=== PATIENT | male | born 1965 | race Caucasian/White ===

== ENCOUNTER 2018-01-10 21:50 | Inpatient (IN) | payer OTHER, SELFPAY ==
[2018-01-10 21:51] VITALS: PULSE 60; RESP 16; TEMP 36.3; BMI 23.7
--- NOTE | 2018-01-10 21:56 | ED.RN ---
NO OLD EKG'S IN MUSE
[2018-01-10] MEDS: Aspirin 81 MG TAB.CHEW 324 MG PO (21:57)
[2018-01-10] MEDS: TICAGRELOR 90 MG TABLET 180 MG PO (21:58)
[2018-01-10 22:03] VITALS: BP 128/86
[2018-01-10] MEDS: Heparin Injection (Vial) 5,000 UNIT/ML VIAL 4000 UNIT IV (22:04)
[2018-01-10 22:12] VITALS: BP 117/76
[2018-01-10] MEDS: fentaNYL 100 MCG/2 ML Ampul 25 MCG IV (22:15)
[2018-01-10 22:19] LABS: Absolute Lymphocyte Count 2.12 X10^3/ul (0.83-4.51); Absolute Neutrophil Count 7.5 X10^3/uL (2.0-7.7); Basophil# 0.03 X10^3/uL; Basophil% 0.3 % (0-1); Eosinophil# 0.09 X10^3/uL; Eosinophils% 0.8 % (0-5); Hematocrit 44.8 % (40-54); Hemoglobin 15.9 g/dl (13.0-16.5); Lymphocyte # 2.12 X10^3/ul (4.0); Lymphocyte % 19.2 % (19-41); Mean Corp Hgb Conc 35.5 g/gl (32-36); Mean Corpuscular Hgb 37.5 pg (27.0-32.0); Mean Corpuscular Volume 105.7 fL (80-94); Mean Platelet Vol. 9.8 fl (6.2-12.0); Monocyte# 1.25 X10^3/uL; Monocyte% 11.3 % (0-10); Neutrophil # 7.52 X10^3/uL (2.7-7.7); Neutrophil % 68.1 % (47-70); Platelet Count 336 K/mm3 (150-450); RBC Distribution Width CV 13.8 % (11.6-14.6); RBC Distribution Width SD 52.7 fl (35.1-43.9); Red Blood Count 4.24 M/mm3 (4.6-6.2)
[2018-01-10 22:20] LABS: POSITIVE COUNT NO; POSITIVE DIFFERENTIAL NO; POSITIVE MORPHOLOGY NO
--- NOTE | 2018-01-10 22:20 | PCM.CONS.C ---
Problem List (1) STEMI (ST elevation myocardial infarction) Status: Acute Reason for Consult Date of Consultation: 01/10/18 History of Present Illness: The patient is a 52 year old M with no significant past medical history. Started having chest pain about 3 hours ago. Some radiation to the left arm. Positive associated shortness of breath and diaphoresis. Presented to the emergency room. EKG was done which demonstrated acute inferior ST elevation myocardial infarction. Patient denies any previous history of angina pectoris. No history of CVA or TIA. No bleeding disorders [] Past Medical History Allergies/Adverse Reactions: Allergies No Known Allergies Allergy (Verified 01/10/18 22:07) Smoking Status: Current every day smoker Review of Systems - Review of Systems General: Denies: Fever, Chills HEENT: Reports: Head Aches Cardiovascular: Reports: Chest Discomfort at Rest, Shortness of Breath at Rest. Denies: Orthopnea, PND, Peripheral Edema, Syncope Respiratory: Denies: Hemoptysis Gastrointestinal: Denies: Abdominal Discomfort, Jaundice, Emesis, Hematemesis, Melena Muscoloskeletal: Reports: Arm Pain Neurological: Denies: History of TIA, History of CVA Endocrine: Denies: Heat Intolerance, Cold Intolerance Hematologic/ Lymphatic: Denies: Easy Brusing, Easy Bleeding Subjectve: Appears anxious Objective: Vital Signs Temp Pulse Resp BP 97.4 F L 60 16 117/76 01/10/18 21:51 01/10/18 21:51 01/10/18 21:51 01/10/18 22:12 Oxygen Flow Rate (L/min) 2 Oxygen Delivery Method Nasal Cannula Weight: 81.647 kg Body Mass Index (BMI) 23.7 General: Alert, Oriented x 3, In Acute Distress HEENT: Atraumatic Oral: Moist Mucosa Neck: Supple Lungs: Diminished Trace Bases Cardiovascular: Regular Rhythm, Normal S1, Normal S2 Abdomen: Bowel Sounds Present, Soft Extremities: No edema Neurological: No Focal Motor or Sensory Deficit Psych/Mental Status: Anxious 01/10/18 21:58: WBC 11.0, RBC 4.24 L, Hgb 15.9, Hct 44.8, MCV 105.7 H, MCH 37.5 H, MCHC 35.5, RDW 13.8, RDW Differential 52.7 H, Plt Count 336, MPV 9.8, Immature Gran % (Auto) 0.300, Neut % (Auto) 68.1, Lymph % (Auto) 19.2, [place] % (Auto) 11.3 H, Eos % (Auto) 0.8, Baso % (Auto) 0.3, Absolute Neuts (auto) 7.5, Total Counted Not Reportable Rhythm: Normal sinus rhythm EKG: Normal sinus rhythm. Acute inferior ST elevation myocardial infarction/injury ECHO: Stress Test: Cardiac Cath: PCI: CT Surgery: Holter monitor: EPS: PPM: CXR: Chest CT Scan: Assessment/Plan 1. Acute ST elevation myocardial infarction/injury. Recommend emergent cardiac catheterization with coronary angiography and possible revascularization. Risks benefits discussed. Patient understands and agrees and wishes to proceed 2. Nicotine dependence. Needs to quit smoking 3. Further recommendations will follow
[2018-01-10 22:23] LABS: Partial Thromboplast Time 24.9 Seconds (24.1-36.2); Prothrombin Time (Protime)PT. 13.1 SECONDS (11.7-14.9)
[2018-01-10 22:31] LABS: Anion Gap 11 (5-15); BUN 6 mg/dL (7-18); BUN/Creat Ratio 5.5 RATIO (10-20); Calcium,Total 9.1 mg/dL (8.5-10.1); Chloride 104 mmol/L (98-107); Creatinine, Serum 1.09 mg/dL (0.70-1.30); EST Glomerular Filtration Rate 76 mL/min (>60); Est Glom Filt Rate - Afr Amer 92 mL/min (>60); Estimated Creatinine Clearance 90.61 ml/min; Glucose 136 mg/dL (74-106); Potassium 3.5 mmol/L (3.5-5.1); Sodium Level 138 mmol/L (136-145)
[2018-01-10 23:31] LABS: ACT Activated Clotting Time 153 sec (74-137)
[2018-01-10 23:31] LABS: ACT Activated Clotting Time 312 sec (74-137)
[2018-01-10 23:35] VITALS: BP 108/78; PULSE 93; RESP 24; TEMP 36.9; O2SAT 100; BMI 24.0
[2018-01-10 23:44] VITALS: PULSE 98
[2018-01-10 23:45] VITALS: BP 119/81; PULSE 93; RESP 11; O2SAT 100
--- NOTE | 2018-01-10 23:50 | PCM.HP.STD ---
Problem List (1) STEMI (ST elevation myocardial infarction) Status: Acute (2) Smoking Status: Chronic History of Present Illness Date of Admission: 01/10/18 Chief Complaint: chest pain The patient is a 52 year old male patient who presents to the ER by squad with chest pain. He was working hard outdoors most of the day in [employer] and on his way home he recognized his pain was in his chest and not getting better. He felt as if he had overheated in the sun but the pain progressed. EKG revealed ST elevation. The pain radiated to his left arm. He was taken to the nursery laborer and two stents were placed on the right side. The patient tolerated the procedure well and is chest pain free. He is now post procedure in the ICU. Past Medical History Past Medical History (Chronic Problems): Chronic Problems Smoking (Chronic) Allergies No Known Allergies Allergy (Verified 01/10/18 22:07) Smoking Status: Current every day smoker - *Family History Paternal History Items: Heart Disease Review of Systems Constitutional: Denies: Chills, Fever, Weight Change HEENT: Denies: Head Aches, Sinus Congestion, Sinus Drainage Cardiovascular: Reports: Chest Pain, Chest Pressure, Heaviness. Denies: Palpitations Respiratory: Denies: Cough, Shortness of breath at rest, Sputum production Gastrointestinal: Denies: Abdominal Pain, Nausea, Vomiting Genitourinary: Denies: Dysuria Musculoskeletal: Denies: Joint Pain, Joint Tenderness Skin: Denies: Rash, Wounds Neurological: Denies: Numbness, Tingling, Focal weakness Psychiatric: Denies: Anxiety, Depression, Homicidal Ideations, Suicidal Ideations Hematologic/ Lymphatic: Denies: Easy Bruising, Easy Bleeding VTE Information - Inpt Only VTE Present on Admission: No VTE Mechan Device Prophylaxis: None VTE Pharm Prophylaxis ordered?: Yes Patient Problems: Active and Suspected Problems STEMI (ST elevation myocardial infarction) (Acute) - Physical Exam General: Alert, Oriented x3, Cooperative HEENT: Atraumatic, Normocephalic Neck: Supple Lungs: Clear to auscultation, Normal air movement, No rhonchi, No wheeze, No rales Cardiovascular: Regular rate, Regular Rhythm, Normal S1, Normal S2, No murmurs Abdomen: Bowel Sounds Present, Soft, Non Tender Extremities: No edema, Capillary Refill Less than 3 Seconds Skin: No rashes, No breakdown Musculoskeletal: No Tenderness to Palpation of Joints or Extremities Neurological: Neuro grossly intact Psych/Mental Status: Normal Affect, Appropriate Vital Signs Temp Pulse Resp BP 97.4 F L 60 16 117/76 01/10/18 21:51 01/10/18 21:51 01/10/18 21:51 01/10/18 22:12 Weight: 186 lb 15.232 oz Body Mass Index (BMI) 24.0 Laboratory Tests Past 24 Hrs 01/10/18 01/10/18 22:35 23:10 Activated Clotting Time 153 H 312 H Assessment/Plan All Active Problems STEMI (ST elevation myocardial infarction) (Acute) Plan - admit to ICU - Dr Davila is on consult - continue orders per cardiology - smoking cessation encouraged Code Visit Inpatient E&M: 21415 Init Hosp L3
[2018-01-11] VITALS (43 sets, daily range): BP systolic 101–130; BP diastolic 62–87; PULSE 53–94; RESP 10–22; TEMP 36.6–37.1; O2SAT 96–100
[2018-01-11] MEDS: 0.9% Normal Saline 1,000 ML 150 ML IV (00:38)
[2018-01-11] MEDS: Metoprolol Tartrate 25 MG Tablet PO ×3 (00:38→21:26)
[2018-01-11] MEDS: Atorvastatin Calcium 40 MG Tablet PO ×2 (00:38→21:26)
--- NOTE | 2018-01-11 03:10 | ED.VISSUMM ---
- ER Visit Summary Date of Service: 01/10/18 Chief Complaint: Chest pain History of Present Illness: The patient is a 52 M brought in by his for chest pain. Patient states that anterior chest heaviness and pressure for the past 3 hours, worse in the past 1 hour. He reports some mild shortness of breath. He does state he has had reflux symptoms recently. Patient denies any known cardiac history but does admit he does not go to a doctor. He is a smoker. Physical Examination: Vital signs are unremarkable. Patient sitting upright in bed. Heart is regular rate and rhythm. Lung sounds are clear. Abdomen is soft and nontender. Extremity examination was no calf tenderness or edema. Strong distal pulses are noted throughout. Test Results: EKG obtained in triage reveals an acute inferior ST elevation [place] with sinus rhythm at a rate of 60. Reciprocal changes are noted in V1 and V2. Patient was seen immediately at this time. Later laboratory studies did return with CBC and chemistry studies to be normal. Coags normal. Troponin 0.105. Emergency Department Course and Treatment: STEMI alert was activated upon completion of the EKG. Patient was consented for cardiac cath. Aspirin, Brilinta, and heparin were given. I spoke with Dr. Davila. While waiting for Software Design Engineer team to be ready, patient did get lightheaded with near syncope. Heart rate remained in the 60s the entire time and he never became hypotensive. Patient had 2 IV lines with fluids wide open. Patient was escorted to the Software Design Engineer. Treatment Plan: [] Disposition: Admit Impression: Inferior STEMI This note was generated with Scutum dictation software. It may contain incorrect words, spelling, and punctuation that were not noted in review of the chart prior to signing ED Disposition - Plan for ED Patient: Disposition: Acute Care Hospital [facility] Chief Complaint: Chest Pain
[2018-01-11 04:22] LABS: Hematocrit 38.1 % (40-54); Hemoglobin 13.3 g/dl (13.0-16.5); Mean Corp Hgb Conc 34.9 g/gl (32-36); Mean Corpuscular Hgb 37.5 pg (27.0-32.0); Mean Corpuscular Volume 107.3 fL (80-94); Mean Platelet Vol. 9.4 fl (6.2-12.0); Platelet Count 259 K/mm3 (150-450); RBC Distribution Width CV 13.3 % (11.6-14.6); RBC Distribution Width SD 51.3 fl (35.1-43.9); Red Blood Count 3.55 M/mm3 (4.6-6.2); Scan Indicated on CBC? Y/N NO; White Blood Count 8.1 K/mm3 (4.4-11.0)
[2018-01-11 04:47] LABS: ALB/GLOB Ratio 0.8 RATIO (0.9-2.4); AST(SGOT) 65 U/L (15-37); Alanine Aminotransfer ALT/SGPT 23 U/L (16-61); Albumin, Serum 2.6 g/dL (3.2-5.0); Alkaline Phosphatase 99 U/L (45-117); Anion Gap 10 (5-15); BUN 5 mg/dL (7-18); BUN/Creat Ratio 6.9 RATIO (10-20); Calcium,Total 7.7 mg/dL (8.5-10.1); Chloride 112 mmol/L (98-107); Creatinine, Serum 0.72 mg/dL (0.70-1.30); EST Glomerular Filtration Rate 122 mL/min (>60); Est Glom Filt Rate - Afr Amer 147 mL/min (>60); Estimated Creatinine Clearance 141.12 ml/min; Globulin 3.2 g/dL (2.2-4.2); Glucose 111 mg/dL (74-106); Potassium 3.9 mmol/L (3.5-5.1); Protein, Total 5.8 g/dL (6.4-8.2); Sodium Level 144 mmol/L (136-145)
--- NOTE | 2018-01-11 08:53 | NURSING ---
talked with social media marketer to get patient a list of primary care doctors.
[2018-01-11] MEDS: TICAGRELOR 90 MG TABLET PO ×2 (09:44→21:27)
[2018-01-11] MEDS: Aspirin E.C. 81 MG Tablet PO (09:44)
[2018-01-11 09:54] LABS: Magnesium 1.7 mg/dL (1.6-2.6)
--- NOTE | 2018-01-11 10:26 | PN.CARD_ITS ---
Subjectve: No complaints. Ambulating. Few runs of nonsustained ventricular tachycardia Objective: Vital Signs Temp Pulse Resp BP Pulse Ox 98 F 64 14 130/76 H 97 01/11/18 10:00 01/11/18 10:00 01/11/18 10:00 01/11/18 10:00 01/11/18 10:00 Oxygen Flow Rate (L/min) 2 Oxygen Delivery Method Room Air Weight: 85.5 kg Body Mass Index (BMI) 24.0 Intake and Output for Last 24 Hours 01/09/18 01/10/18 01/11/18 23:59 23:59 23:59 Intake Total 3116 / 3116 Balance 3116 / 3116 General: Awake, Alert, Oriented x 3, No Acute Distress HEENT: Atraumatic, Normocephalic Oral: Moist Mucosa Neck: Supple, No JVD Lungs: Clear to auscultation Cardiovascular: Regular Rhythm, Normal S1, Normal S2, No Rubs Abdomen: Bowel Sounds Present, Soft Extremities: No edema Neurological: No Focal Motor or Sensory Deficit Psych/Mental Status: Appropriate 01/11/18 04:10: WBC 8.1, RBC 3.55 L, Hgb 13.3, Hct 38.1 L, MCV 107.3 H, MCH 37.5 H, MCHC 34.9, RDW 13.3, RDW Differential 51.3 H, Plt Count 259, MPV 9.4 01/11/18 04:10: Sodium 144, Potassium 3.9, Chloride 112 H, Carbon Dioxide 22.0, Anion Gap 10, BUN 5 L, Creatinine 0.72, Est GFR (MDRD) Af Amer 147, Est GFR ( MDRD) Non-Af 122, BUN/Creatinine Ratio 6.9 L, Glucose 111 H, Calcium 7.7 L, Total Bilirubin 0.80, Troponin I 14.100 H* 01/11/18 04:10: Magnesium 1.7 Rhythm: Predominantly normal sinus rhythm. Few runs of nonsustained ventricular tachycardia overnight and this morning EKG: Normal sinus rhythm ECHO: Stress Test: Cardiac Cath: PCI: CT Surgery: Holter monitor: EPS: PPM: CXR: Chest CT Scan: Medical Necessity - Tobacco Use Smoking Status: Current every day smoker Assessment/Plan 1. Acute ST elevation myocardial infarction/injury. Status post percutaneous revascularization with 2 drug-eluting stent placement to the proximal up to the distal right coronary artery. Stable. Asymptomatic. Continue aspirin lifelong. Brilinta for at least one year 2. Nonsustained ventricular tachycardia in the setting of #1 above. Keep potassium level above 4, keep magnesium more than 2.0. Continue beta liseth. Increase beta-liseth dose as tolerated 3. Nicotine dependence. Counseled to quit 4. History of EtOH abuse. Per patient, he drinks 2-3 shots of liquor every day. Counseled to quit 5. Macrocytosis noted on complete blood count. Likely secondary to EtOH abuse. Follow and manage as per internal medicine Likely discharge home in the morning
--- NOTE | 2018-01-11 10:41 | PCM.PN.HOSP ---
Patient Problems: Active and Suspected Problems STEMI (ST elevation myocardial infarction) (Acute) Subjective: Doing well today denies any chest pain. No shortness of breath lightheadedness or dizziness. States that he feels back to his baseline prior to coming into the hospital. No pain in his wrist from the cath yesterday. Vitals/I&O's: Vital Signs Temp Pulse Resp BP Pulse Ox 98 F 64 14 130/76 H 97 01/11/18 10:00 01/11/18 10:00 01/11/18 10:00 01/11/18 10:00 01/11/18 10:00 Oxygen Flow Rate (L/min) 2 Oxygen Delivery Method Room Air Weight: 85.5 kg Body Mass Index (BMI) 24.0 Intake and Output for Last 24 Hours 01/09/18 01/10/18 01/11/18 23:59 23:59 23:59 Intake Total 3116 / 3116 Balance 3116 / 3116 General: Alert, Oriented x3, Cooperative, No apparent distress HEENT: Atraumatic, PERRLA, EOMI, Normocephalic Oral: Moist Mucosa, - - Poor dentition Neck: Supple, No JVD Lungs: Clear to auscultation, Normal air movement, No rhonchi, No wheeze, No rales Cardiovascular: Regular rate, Regular Rhythm, Normal S1, Normal S2, No murmurs Abdomen: Soft, Non Tender, Non-Distended, No Hepato-splenomegaly Extremities: No clubbing, No cyanosis, No edema Skin: No rashes, No breakdown Psych/Mental Status: Normal Affect, Appropriate Laboratory Results 01/10/18 22:35: Activated Clotting Time 153 H 01/10/18 23:10: Activated Clotting Time 312 H 01/11/18 04:10: WBC 8.1, RBC 3.55 L, Hgb 13.3, Hct 38.1 L, MCV 107.3 H, MCH 37.5 H, MCHC 34.9, RDW 13.3, RDW Differential 51.3 H, Plt Count 259, MPV 9.4 01/11/18 04:10: Sodium 144, Potassium 3.9, Chloride 112 H, Carbon Dioxide 22.0, Anion Gap 10, BUN 5 L, Creatinine 0.72, Estim Creat Clear Calc 141.12, Est GFR (MDRD) Af Amer 147, Est GFR (MDRD) Non-Af 122, BUN/Creatinine Ratio 6.9 L, Glucose 111 H, Calcium 7.7 L, Total Bilirubin 0.80, AST 65 H, ALT 23, Alkaline Phosphatase 99, Troponin I 14.100 H*, Total Protein 5.8 L, Albumin 2.6 L, Globulin 3.2, Albumin/Globulin Ratio 0.8 L 01/11/18 04:10: Magnesium 1.7 Current Medications Aspirin (Ecotrin) 81 mg PO DAILY@0800 [facility] Last Admin: 01/11/18 09:44 Dose: 81 mg Atorvastatin Calcium (Lipitor) 40 mg PO QHS [facility] Last Admin: 01/11/18 00:38 Dose: 40 mg Atropine Sulfate () 0.5 mg IV UD PRN PRN Reason: HR <50 bpm Magnesium Sulfate 2 gm/ Sodium (Chloride) 104 mls @ 52 mls/hr IV X1 ONE Stop: 01/11/18 12:59 Last Admin: 01/11/18 10:26 Dose: 52 mls/hr Metoprolol Tartrate (Lopressor (Beta Carlos)) 25 mg PO BID [facility] Last Admin: 01/11/18 09:43 Dose: 25 mg Nitroglycerin (Nitrostat) 0.4 mg SUBLINGUAL Q5M PRN PRN Reason: CARDIAC/CHEST PAIN Sodium Chloride () 500 ml IV BOLUS PRN PRN Reason: VASO-VAGAL PROTOCOL Sodium Chloride () 5 - 30 ml IV UD PRN PRN Reason: SALINE FLUSH Ticagrelor (Brilinta) 90 mg PO BID [facility] Last Admin: 01/11/18 09:44 Dose: 90 mg Medical Necessity - Tobacco Use Smoking Status: Heavy Smoker (>10/day) - 1-2 packs per day for over 30 years Tobacco Use: Cigarettes Assessment/Plan All Active Problems STEMI (ST elevation myocardial infarction) (Acute) 1. Acute inferior STEMI/Unsustained VT - S/p cardiac cath with 2 TIFFANIE in the RCA for 100% occlusion - On ASA and brillinta. Had a long discussion with him today that if his co-pay is large with the brillinta, he is to not stop but may be switched to plavix as an outpatient. - Understands that he is to continue DAPT for at least 1 year - His Vtach was unsustained an aymptomatic last night - He is to f/u with cardiology as an outpatient and he was provided with a list of local PCP who accept his insurance - c/w with metoprolol and lipitor as an outpatient 2. Tobacco use - Discussed that he must quit - He states that he will and he does not have an urge to smoke. If he does can start nicotine replacement prior to DC or as an outpatient 3. Macrocytosis/Hx of EtOH use - Will monitor. He is not anemic - Will obtain CBC, B12, Folate and thiamine in the morning Over 35 minutes of critical care time was provided Code Visit Inpatient E&M: 57051 Subs Hosp L3
--- NOTE | 2018-01-11 11:15 | CRPHASE1_ITS ---
Patient Data/Charges Phase II Referral:: [facility] Start Phase II:: FOLLOWING OFFICE VISIT WITH [facility] Risk Factors/Lifestyle Smoking Status: Current every day smoker Hx Hypertension: No Hx Diabetes Mellitus Type 1: No Hx Diabetes Mellitus Type 2: No Hx Metabolic Disorders: No Hx Dyslipidemia: No Hx Obesity: No Height: 6 ft 2 in - BMI 24.2 Stress: Home/Family Risk Factor for Sedentary Lifestyle: Moderate Risk Phase I Education Given On:: [place], Antiplatelet medication, Smoking cessation Issues Affecting Care:: None Knowledge of Condition:: Yes Learning Preferences: Verbal, Written - FAMILY AT BEDSIDE Hospital Course Presenting Symptoms:: STEMI Medical/Surgical History IA:: Yes - STEMI CAD:: No Diabetes:: No Hypertension:: No Dyslipidemia:: No Discharge/Home/Social Eval Discharge Disposition: Home Marital Status:
--- NOTE | 2018-01-11 11:18 | CRPH1.INST_ITS ---
General Education CAD and cardiac anatomy and function:: Patient communicates acknowledgment, Family communicates acknowledgment Explanation of diagnoses and procedures:: Patient communicates acknowledgment, Family communicates acknowledgment Sign/Symptoms of [place]:: Patient communicates acknowledgment, Family communicates acknowledgment Antiplatelet therapy: Patient communicates acknowledgment, Family communicates acknowledgment Proper use of NTG-SL: Patient communicates acknowledgment, Family communicates acknowledgment Emergency procedures and activation of EMS: Patient communicates acknowledgment, Family communicates acknowledgment Compliance of all prescribed medications: Patient communicates acknowledgment, Family communicates acknowledgment - FAMILY AT BEDSIDE Smoking Patient Nicotine/Smoking Risk Factors Are:: Cigarettes Recommendations Include:: Smoking cessation strategies/Smoking packet, Second- hand smoke recommendation, Participation in a smoking cessation program, Previous smoker; encourage continued cessation Nicotine/Smoking Response Code:: Patient communicates acknowledgment, Family communicates acknowledgment Dyslipidemia Recommendations Include:: Lipid profile not available Overweight/Obesity Patient Overweight/Obesity Risk Factors Are:: BMI Normal [18-25 & < 65 years old] Hypertension Patient Hypertension Risk Factors Are:: No documented hx of HTN Diabetes Patient Diabetes Risk Factors Are:: No documented hx of diabetes Metabolic Syndrome Recommendations Include:: Does not meet criteria Sedentary Patient Sedentary Risk Factors Are:: Lack of regular exercise Recommendations Include:: Aerobic exercise 5-7 times/week for 20-30 minutes continuously, Benefits of regular exercise, Discussed home walking program, Monitored Outpatient Cardiac Rehab Sedentary Response Code:: Patient communicates acknowledgment, Family communicates acknowledgment Stress Recommendations Include:: Identification of stressors, and assessment of coping skills, Stress management techniques Stress Response Code:: Patient communicates acknowledgment, Family communicates acknowledgment
--- NOTE | 2018-01-11 12:45 | CASEMGMT ---
VERNELL spoke with NATALIA Cooper indicating patient needs a PCP list. VERNELL let RN Vin HELMS know and she will get this list to patient. Elaine CHACON [employer]PARER
--- NOTE | 2018-01-11 14:32 | CASEMGMT ---
Addendum entered by Macho Khan 01/11/18 15:46: Pt's brought in copy of her insurance card. She states they do not have prescription coverage. NATALIA HELMS asked nurse to speak with cardiology re: other options for Brillinta as cost will be prohibitive without prescription coverage and ineligibility for financial assist from [employer]. Yeimi MONTOYA Original Note: See NATALIA HELMS assessment link. Pt states he does not have pharmacy because he has not needed prescriptions. 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 -NATALIA HELMS discussed Brillinta. Savings card can be used if pt has commercial insurance, otherwise it will provide $200 off first month supply. Call to [facility] Rep who states financial assistance available for pt's with income under $45118/yr for couple (can add $7000/yr per dependent child). Pt states his income is well over this. -NATALIA HELMS requested his bring her card in so CM can evaluate for prescription coverage. Nurse also notified and request when brings card in, to make copy and put on front of chart. Yeimi DAVIDSON
[2018-01-11] MEDS: Ondansetron ODT 4 MG Tablet PO (18:13)
[2018-01-11] MEDS: Famotidine 20 MG Tablet 40 MG PO (18:14)
[2018-01-11] MEDS: 0.9% NaCl Peripheral Flush Adult/Peds IV (21:27)
[2018-01-12] VITALS (16 sets, daily range): BP systolic 96–130; BP diastolic 50–88; PULSE 47–80; RESP 13–22; TEMP 36.8–37.4; O2SAT 94–98
[2018-01-12 05:14] LABS: Anion Gap 10 (5-15); BUN 6 mg/dL (7-18); BUN/Creat Ratio 8.2 RATIO (10-20); Calcium,Total 8.3 mg/dL (8.5-10.1); Chloride 108 mmol/L (98-107); Creatinine, Serum 0.73 mg/dL (0.70-1.30); EST Glomerular Filtration Rate 120 mL/min (>60); Est Glom Filt Rate - Afr Amer 146 mL/min (>60); Estimated Creatinine Clearance 139.19 ml/min; Glucose 97 mg/dL (74-106); Magnesium 2.2 mg/dL (1.6-2.6); Potassium 3.9 mmol/L (3.5-5.1); Sodium Level 141 mmol/L (136-145)
[2018-01-12] MEDS: Metoprolol Tartrate 25 MG Tablet PO (07:55)
[2018-01-12] MEDS: TICAGRELOR 90 MG TABLET PO (07:55)
[2018-01-12] MEDS: Aspirin E.C. 81 MG Tablet PO (07:56)
[2018-01-12] MEDS: Famotidine 20 MG Tablet 40 MG PO (07:58)
[2018-01-12 08:22] LABS: Vitamin B12 376 pg/mL (211-911)
--- NOTE | 2018-01-12 09:59 | PCM.PN.HOSP ---
Patient Problems: Active and Suspected Problems STEMI (ST elevation myocardial infarction) (Acute) Subjective: Doing well today, feels much better. No chest pain or shortness of breath. He did have some dizziness with change in position likely d/t new medication. He would like to go home today if possible. Vitals/I&O's: Vital Signs Temp Pulse Resp BP Pulse Ox 98.3 F 79 15 119/57 L 96 01/12/18 04:00 01/12/18 07:55 01/12/18 07:00 01/12/18 07:55 01/12/18 07:48 Oxygen Flow Rate (L/min) 2 Oxygen Delivery Method Room Air Weight: 183 lb 10.321 oz Body Mass Index (BMI) 24.0 Intake and Output for Last 24 Hours 01/10/18 01/11/18 01/12/18 23:59 23:59 23:59 Intake Total 4993 / 4993 200 / 200 Output Total 100 / 100 Balance 4893 / 4893 200 / 200 General: Alert, Oriented x3, Cooperative HEENT: Atraumatic, PERRLA, EOMI, Normocephalic Oral: Moist Mucosa Neck: Supple, No JVD Lungs: Clear to auscultation, Normal air movement, No rhonchi, No wheeze, No rales Cardiovascular: Regular rate, Regular Rhythm, Normal S1, Normal S2, No murmurs Abdomen: Soft, Non Tender, Non-Distended, No Hepato-splenomegaly Extremities: No edema Psych/Mental Status: Normal Affect, Appropriate Laboratory Results 01/12/18 04:15: Sodium 141, Potassium 3.9, Chloride 108 H, Carbon Dioxide 23.0, Anion Gap 10, BUN 6 L, Creatinine 0.73, Estim Creat Clear Calc 139.19, Est GFR (MDRD) Af Amer 146, Est GFR (MDRD) Non-Af 120, BUN/Creatinine Ratio 8.2 L, Glucose 97, Calcium 8.3 L, Magnesium 2.2 01/12/18 04:15: Vitamin B12 376 01/12/18 04:15: Folate 1.70 L 01/12/18 04:15: Whole Bld Vitamin B1 Pending Current Medications Aspirin (Ecotrin) 81 mg PO DAILY@0800 [facility] Last Admin: 01/12/18 07:56 Dose: 81 mg Atorvastatin Calcium (Lipitor) 40 mg PO QHS [facility] Last Admin: 01/11/18 21:26 Dose: 40 mg Atropine Sulfate () 0.5 mg IV UD PRN PRN Reason: HR <50 bpm Famotidine (Pepcid) 40 mg PO DAILY [facility] Last Admin: 01/12/18 07:58 Dose: 40 mg Folic Acid (Folic Acid) [facility] Metoprolol Tartrate (Lopressor (Beta Carlos)) 25 mg PO BID [facility] Last Admin: 01/12/18 07:55 Dose: 25 mg Nitroglycerin (Nitrostat) 0.4 mg SUBLINGUAL Q5M PRN PRN Reason: CARDIAC/CHEST PAIN Ondansetron HCl (Zofran Odt) 4 mg PO Q8H PRN PRN PRN Reason: NAUSEA/VOMITING Last Admin: 01/11/18 18:13 Dose: 4 mg Sodium Chloride () 500 ml IV BOLUS PRN PRN Reason: VASO-VAGAL PROTOCOL Sodium Chloride () 5 - 30 ml IV UD PRN PRN Reason: SALINE FLUSH Last Admin: 01/11/18 21:27 Dose: 10 ml Ticagrelor (Brilinta) 90 mg PO BID [facility] Last Admin: 01/12/18 07:55 Dose: 90 mg Medical Necessity - Tobacco Use Smoking Status: Current every day smoker Tobacco Use: Cigarettes Assessment/Plan All Active Problems STEMI (ST elevation myocardial infarction) (Acute) 1. Acute inferior STEMI - S/p cardiac cath with 2 TIFFANIE in the RCA for 100% occlusion - On ASA and brillinta. Reminded that if his co-pay is large with the brillinta, he is to not stop but may be switched to plavix as an outpatient. - Understands that he is to continue DAPT for at least 1 year - He is to f/u with cardiology as an outpatient and he was provided with a list of local PCP who accept his insurance - c/w with metoprolol and lipitor as an outpatient 2. Tobacco use - Discussed that he must quit - He states that he will and he does not have an urge to smoke. If he does can start nicotine replacement prior to DC or as an outpatient 3. Macrocytosis/Hx of EtOH use - B12 is normal but folate is low will start and DC with folate replacement - Thiamine is pending and will need to be followed up as an outpatient DVT: None Diet: Cardiac Code: FULL Dispo: DC likely today with PCP and cardiology follow-up Code Visit Inpatient E&M: 84209 Subs Hosp L2
--- NOTE | 2018-01-12 10:06 | PCM.DC ---
- Discharge Diagnoses Current Active Problems: Current Active and Chronic Problems STEMI (ST elevation myocardial infarction) (Acute) Smoking (Chronic) Folate Deficiency (Acute) Macrocytosis (Acute) You will use the following diet at home:: Cardiac Your food should be the consistency of: Regular Your liquids should be the consistency of: Regular/Thin Discharge Activity: Return to Normal Activity Call your doctor if your incision/area has: Sudden Increased Bleeding, Increased Pain/ Swelling, Increased Redness Call your doctor if you observe: Fever of 101 or Higher, Numbness or Tingling, Shortness of breath, Dizziness, Chest pain, Increased palpitations (irregular heartbeat) Allergies/Adverse Reactions: Allergies No Known Allergies Allergy (Verified 01/10/18 22:07) Medications to take at Discharge Zantac 50 mg PO BID PRN 01/11/18 Aspirin E.C. [Ecotrin] 81 mg PO DAILY@0800 30 Days #30 tab 01/12/18 Atorvastatin Calcium [Lipitor] 40 mg PO QHS 30 Days #30 tab 01/12/18 Clopidogrel Bisulfate [Plavix] 75 mg PO DAILY 30 Days #30 tab 01/12/18 Folic Acid 2 mg PO BIDCM 30 Days #30 tab 01/12/18 Metoprolol Tartrate [Lopressor (beta liseth)] 25 mg PO BID 30 Days #30 tab 01/12/18 The following prescriptions were given: Aspirin E.C. [Ecotrin] 81 mg PO DAILY@0800 30 Days #30 tab Atorvastatin Calcium [Lipitor] 40 mg PO QHS 30 Days #30 tab Clopidogrel Bisulfate [Plavix] 75 mg PO DAILY 30 Days #30 tab Folic Acid 2 mg PO BIDCM 30 Days #30 tab Metoprolol Tartrate [Lopressor (beta liseth)] 25 mg PO BID 30 Days #30 tab Primary Care Physician: Care Physician,No Primary [Primary Care Provider] - Test Results: Test results from this visit will be discussed in further detail at your follow-up appointment, if applicable. Please Follow Up With: Yong Amanda MD When: 1 week
--- NOTE | 2018-01-12 10:31 | CASEMGMT ---
NATALIA HELMS NOTE: Spoke with [facility] re: cost of Brilinta with no prescription coverage. Cost is $377.70/month. Pt made aware with Brilinta savings card of $200 off for the 1st 30 days, his out of pocket expense would be $177 for the first month and then $377.70/month thereafter. Pt states is agreeable to paying this amt of $177.70 for the first month. Informed pt to discuss with his MD about other options of medication after the 1st 30 days. Pt voiced understanding. Brilinta savings card sent to [facility] at this time, as pt states would prefer to have prescriptions filled there prior to discharge. Dr Jurado made aware that pt is agreeable to paying for the first month but would like to discuss other more affordable options after the 30 days of Brilinta. Marilin MEDINA RN, CM
--- NOTE | 2018-01-12 11:05 | PCM.PN.CARD ---
Subjectve: Denies any complaints. No chest pain or shortness of breath Objective: Vital Signs Temp Pulse Resp BP Pulse Ox 99.0 F 66 22 H 113/77 98 01/12/18 08:00 01/12/18 10:00 01/12/18 10:00 01/12/18 10:00 01/12/18 10:00 Oxygen Flow Rate (L/min) 2 Oxygen Delivery Method Room Air Weight: 83.3 kg Body Mass Index (BMI) 24.0 Intake and Output for Last 24 Hours 01/10/18 01/11/18 01/12/18 23:59 23:59 23:59 Intake Total 4993 / 4993 200 / 200 Output Total 100 / 100 Balance 4893 / 4893 200 / 200 General: Awake, Alert, Oriented x 3, No Acute Distress Oral: Moist Mucosa Neck: Supple, No JVD Lungs: Clear to auscultation Cardiovascular: Regular Rhythm, Normal S1, Normal S2, No Murmurs, No Rubs, No Gallops Vascular: - - Right radial pulse 2+ Abdomen: Bowel Sounds Present, Soft Neurological: No Focal Motor or Sensory Deficit Psych/Mental Status: Appropriate 01/12/18 04:15: Sodium 141, Potassium 3.9, Chloride 108 H, Carbon Dioxide 23.0, Anion Gap 10, BUN 6 L, Creatinine 0.73, Est GFR (MDRD) Af Amer 146, Est GFR (MDRD) Non-Af 120, BUN/Creatinine Ratio 8.2 L, Glucose 97, Calcium 8.3 L, Magnesium 2.2 Rhythm: Normal sinus rhythm EKG: Normal sinus rhythm. Evolving changes with recent ST elevation myocardial infarction ECHO: Overall normal LV systolic function Stress Test: Cardiac Cath: PCI: CT Surgery: Holter monitor: EPS: PPM: CXR: Chest CT Scan: Medical Necessity - Tobacco Use Smoking Status: Current every day smoker Tobacco Use: Cigarettes Assessment/Plan 1. Acute ST elevation myocardial infarction/injury. Status post percutaneous revascularization with 2 drug-eluting stent placement to the proximal up to the distal right coronary artery. Stable. Asymptomatic. Continue aspirin lifelong. Patient does not have prescription coverage. Will stop Brilinta. Load with Plavix today and start on 75 mg once daily from the more 2. No arrhythmias overnight 3. Nicotine dependence. Counseled to quit 4. History of EtOH abuse. Per patient, he drinks 2-3 shots of liquor every day. Counseled to quit 5. Macrocytosis noted on complete blood count. Likely secondary to EtOH abuse. Follow and manage as per internal medicine Okay to discharge home today. Follow-up with Dr. Amanda in the office in 1 week time
[2018-01-12] MEDS: Folic Acid 1 MG Tablet 2 MG PO (11:33)
[2018-01-12] MEDS: Clopidogrel Bisulfate 300 MG Tablet PO (11:33)
--- NOTE | 2018-01-12 12:49 | PCM.DC.SUM ---
Discharge Date and Diagnosis Date of Admission: 01/10/18 Date of Discharge: 01/12/18 - Primary Discharge Diagnosis Inferior STEMI Macrocytosis Folate Deficiency Tobacco use H/o EtOH use - Secondary Discharge Diagnosis Chronic Problems (Last Updated 01/12/18 @ 12:13 by Socorro Reyes) Stented coronary artery (Chronic 01/10/18) 3.0 X 16 mm Synergy TIFFANIE to proximal RCA per Dr. Davila @ [facility] Atherosclerotic heart disease of [place] coronary artery without angina pectoris (Chronic) Smoking (Chronic) Hospital Course and Treatment Imaging Results: Echo 01/10/2018: Interpretation Summary Segmental dysfunction with preserved ejection fraction Posterior-Basal: Hypokinetic. Infero-Basal: Hypokinetic. Mid-Posterior: Hypokinetic. Mid-Inferior: Hypokinetic.. The estimated ejection fraction is 55 %. Anterior leaflet diffuse mitral valve thickening. Trivial mitral valve insufficiency. Trivial tricuspid valve insufficiency. Trivial pulmonic valve insufficiency. Normal diastology for age. Consultants: Cardiology Operations: None Procedures: 2-D Echocardiogram, Cardiac catheterization - Angiogram performed pre balloon dilatation. JR4 Guide catheter was inserted and engaged into the RCA. runthrough Guide wire was advanced to the RCA. 3.0x15 emerge Balloon catheter was advanced across lesion in the right coronary, prox. PTCA balloon inflated at 6 atms for 20 secs. PTCA balloon inflated at 4 atms for 13 secs. PTCA balloon inflated at 4 atms for 13 secs. 3.0x38 synergy Drug Eluting stent was advanced across the lesion in the right coronary, prox. 3.0x16 synergy Drug Eluting stent was advanced across the lesion in the right coronary, mid. 3.5x30 NC emerge Balloon catheter was advanced across lesion in the right coronary, mid. Angiogram performed post stent deployment. Angiogram performed post balloon dilatation. The arterial sheath was pulled and a TR Band was applied for hemostasis, EKG - Inferior wall STEMI Summary of Care Provided: HPI: The patient is a 52 year old male patient who presents to the ER by squad with chest pain. He was working hard outdoors most of the day in [place] and on his way home he recognized his pain was in his chest and not getting better. He felt as if he had overheated in the sun but the pain progressed. EKG revealed ST elevation. The pain radiated to his left arm. He was taken to the concrete plant laborer and two stents were placed on the right side. The patient tolerated the procedure well and is chest pain free. He is now post procedure in the ICU. Hospital Course 1. Inferior wall STEMI - On presentation he was found to have an inferior wall [place] on EKG and troponin increase from normal to 14 and he was taken to the concrete plant laborer urgently where a 100% occluded RCA was found and 2 drug eluding stents were placed. He was started on lipitor, coreg, aspirin and initially brillinta. On day of discharge it was found that his copay for brillinta would be close to $400, so he was loaded with plavix and discharge on ASA and plavix. It was made clear that he needs to completely quit smoking and he must stay on DAPT for at least 12 months, and that any elective procedures should be on hold until that time. 2. Macrocytosis/Folate Deficiency - He is not anemic and denies any SOB or dizziness prior to the [place], however on routine blood work he was found to have a large MCV. A folate, B12 and B1 were drawn. B12 was normal bout folate was low at 1.7, normal is 3.1 to 55. He was started on folate 2 mg BID PO, and he should have levels recheck in a few months for resolution. 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 Thiamine is pending and will need to be followed-up on as an outpatient since this is a send out lab. Discharge Activity: Return to Normal Activity Call your doctor if your incision/area has: Sudden Increased Bleeding, Increased Pain/ Swelling, Increased Redness Call your doctor if you observe: Fever of 101 or Higher, Numbness or Tingling, Shortness of breath, Dizziness, Chest pain, Increased palpitations (irregular heartbeat) Home Medications: Medications to take at Discharge Zantac 50 mg PO BID PRN 01/11/18 Aspirin E.C. [Ecotrin] 81 mg PO DAILY@0800 30 Days #30 tab 01/12/18 Atorvastatin Calcium [Lipitor] 40 mg PO QHS 30 Days #30 tab 01/12/18 Clopidogrel Bisulfate [Plavix] 75 mg PO DAILY 30 Days #30 tab 01/12/18 Folic Acid 2 mg PO BIDCM 30 Days #30 tab 01/12/18 Metoprolol Tartrate [Lopressor (beta carlos)] 25 mg PO BID 30 Days #30 tab 01/12/18 Following Prescrptions Were Given to Patient: Aspirin E.C. [Ecotrin] 81 mg PO DAILY@0800 30 Days #30 tab Atorvastatin Calcium [Lipitor] 40 mg PO QHS 30 Days #30 tab Clopidogrel Bisulfate [Plavix] 75 mg PO DAILY 30 Days #30 tab Folic Acid 2 mg PO BIDCM 30 Days #30 tab Metoprolol Tartrate [Lopressor (beta carlos)] 25 mg PO BID 30 Days #30 tab Primary Care Physician: Care Physician,No Primary [Primary Care Provider] - Please follow up with your Primary Care Physician in: 3-5 days Please Follow Up With: Yong Amanda MD When: 1 week Disposition: Home Patient Condition:: Good Medical Necessity - Tobacco Use Smoking Status: Current every day smoker Tobacco Use: Cigarettes Meaningful Use Info Meaningful Use Diagnoses (Choose all that apply): AMI - AMI Aspirin given w/in 24hrs of arrival?: Yes ASA at discharge?: Yes Statins at discharge?: Yes Shaan/ARB at discharge?: No Reason Shaan/ARB not ordered:: Not indicated Beta Carlos at discharge?: Yes Done w/ Acute [place] measure.: Yes Code Visit Inpatient E&M: 75742 Disch Hosp - More than 30 minutes were spent on discharging patient.
[2018-01-16 10:04] LABS: Vitamin B1, Thiamine 103.5 nmol/L (66.5-200.0)
== END 2018-01-12 11:53 | disposition home or self-care (01) | DRG 247 ==
LOC: ED 22:01 → ICU 22:21
PROVIDERS: Internal Medicine Cardiovascular Disease; Admitting Provider Family Medicine; Emergency Provider Emergency Medicine; Visit Provider Family Medicine
DX: I21.19 ST elevation (STEMI) myocardial infarction involving other coronary artery of inferior wall (principal); I47.2 Ventricular tachycardia; I25.10 Atherosclerotic heart disease of native coronary artery without angina pectoris; F17.210 Nicotine dependence, cigarettes, uncomplicated; F10.10 Alcohol abuse, uncomplicated; D75.89 Other specified diseases of blood and blood-forming organs; E53.8 Deficiency of other specified B group vitamins
CPT/HCPCS: 80048; 80053; 82607; 82746; 83735; 84425; 84484; 85025; 85027; 85347; 85610; 85730; 92941; 93005; 93306; 93458; 99281; 99406; J7030; Q9967; A4216; C1725; C1769; C1874; C1887; C1894; C9606; J0583

== ENCOUNTER → 2018-04-11 09:26 | Outpatient (CLI) | payer OTHER, SELFPAY ==
[2018-04-11 12:33] LABS: AST(SGOT) 34 U/L (15-37); Alanine Aminotransfer ALT/SGPT 37 U/L (16-61); Albumin, Serum 3.5 g/dL (3.2-5.0); Alkaline Phosphatase 118 U/L (45-117); Bilirubin, Direct 0.12 mg/dL (0.00-0.30); Cholesterol 130 mg/dL (200); Globulin 4.2 g/dL (2.2-4.2); High Density Lipoprotein 36 mg/dL; Protein, Total 7.7 g/dL (6.4-8.2); Triglycerides 188 mg/dL; Very Low Density Lipoprotein 38 mg/dL (5-40)
[2018-04-11 12:47] LABS: Anion Gap 11 (5-15); BUN 5 mg/dL (7-18); BUN/Creat Ratio 5.4 RATIO (10-20); Chloride 103 mmol/L (98-107); Creatinine, Serum 0.92 mg/dL (0.70-1.30); EST Glomerular Filtration Rate 91 mL/min (>60); Est Glom Filt Rate - Afr Amer 111 mL/min (>60); Glucose 93 mg/dL (74-106); Sodium Level 140 mmol/L (136-145)
== END ==
PROVIDERS: Internal Medicine Cardiovascular Disease; Family Provider Internal Medicine; PCP Internal Medicine; Referring Provider Internal Medicine; Visit Provider Internal Medicine
DX: I10 Essential (primary) hypertension (principal); E78.2 Mixed hyperlipidemia
CPT/HCPCS: 36415; 80048; 80061; 80076

== ENCOUNTER → 2018-07-29 11:23 | Outpatient (CLI) | payer OTHER, SELFPAY ==
[2018-07-29 14:31] LABS: Absolute Neutrophil Count 7.5 X10^3/uL (2.0-7.7); Basophil# 0.03 X10^3/uL; Basophil% 0.3 % (0-1); Eosinophil# 0.27 X10^3/uL; Eosinophils% 2.5 % (0-5); Hematocrit 43.3 % (40-54); Hemoglobin 14.7 g/dl (13.0-16.5); Lymphocyte % 15.9 % (19-41); Mean Corp Hgb Conc 33.9 g/gl (32-36); Mean Corpuscular Hgb 33.3 pg (27.0-32.0); Mean Corpuscular Volume 98.2 fL (80-94); Mean Platelet Vol. 10.8 fl (6.2-12.0); Monocyte# 1.18 X10^3/uL; Monocyte% 11.1 % (0-10); Neutrophil # 7.46 X10^3/uL (2.7-7.7); Platelet Count 374 K/mm3 (150-450); RBC Distribution Width CV 12.5 % (11.6-14.6); RBC Distribution Width SD 43.5 fl (35.1-43.9); Red Blood Count 4.41 M/mm3 (4.6-6.2); White Blood Count 10.7 K/mm3 (4.4-11.0)
[2018-07-29 14:34] LABS: POSITIVE COUNT NO; POSITIVE DIFFERENTIAL NO; POSITIVE MORPHOLOGY NO
[2018-07-29 14:37] LABS: Vitamin B12 389 pg/mL (211-911)
[2018-07-29 15:42] LABS: Folates, (Folic Acid) > 100.00 ng/mL (3.1-55.4)
== END ==
PROVIDERS: Family Provider Internal Medicine; PCP Internal Medicine; Referring Provider Internal Medicine; Visit Provider Internal Medicine
DX: E53.8 Deficiency of other specified B group vitamins (principal)
CPT/HCPCS: 36415; 82607; 82746; 85025

== ENCOUNTER → 2019-01-10 11:22 | Outpatient (CLI) | payer OTHER, SELFPAY ==
[2019-01-10 12:22] LABS: Absolute Lymphocyte Count 1.34 X10^3/uL (0.83-4.51); Absolute Neutrophil Count 6.8 X10^3/uL (2.0-7.7); Basophil# 0.03 X10^3/uL; Basophil% 0.3 % (0-1); Eosinophil# 0.14 X10^3/uL; Eosinophils% 1.6 % (0-5); Hematocrit 35.3 % (40-54); Hemoglobin 12.4 g/dL (13.0-16.5); Lymphocyte # 1.34 X10^3/ul (4.0); Lymphocyte % 15.3 % (19-41); Mean Corp Hgb Conc 35.1 g/dL (32-36); Mean Corpuscular Hgb 34.2 pg (27.0-32.0); Mean Corpuscular Volume 97.2 fL (80-94); Monocyte# 0.45 X10^3/uL; Monocyte% 5.1 % (0-10); NRBC Flagged by Analyzer 0 % (0-5); Neutrophil # 6.79 X10^3/uL (2.7-7.7); Neutrophil % 77.4 % (47-70); Platelet Count 229 K/mm3 (150-450); RBC Distribution Width CV 13.9 % (11.6-14.6); RBC Distribution Width SD 49.2 fl (35.1-43.9); Red Blood Count 3.63 M/mm3 (4.6-6.2); White Blood Count 8.8 K/mm3 (4.4-11.0)
== END ==
PROVIDERS: Family Provider Internal Medicine; PCP Internal Medicine; Visit Provider Internal Medicine
DX: K92.2 Gastrointestinal hemorrhage, unspecified (principal)
CPT/HCPCS: 36415; 85025

== ENCOUNTER → 2019-01-19 10:27 | Outpatient (CLI) | payer OTHER, SELFPAY ==
[2019-01-19 09:28] VITALS: BMI 22.9
[2019-01-19 11:19] LABS: AST(SGOT) 25 U/L (15-37); Alanine Aminotransfer ALT/SGPT 12 U/L (16-61); Albumin, Serum 2.9 g/dL (3.2-5.0); Alkaline Phosphatase 114 U/L (45-117); Bilirubin, Direct 0.13 mg/dL (0.00-0.30); Cholesterol 99 mg/dL (200); Globulin 3.9 g/dL (2.2-4.2); High Density Lipoprotein 30 mg/dL; Protein, Total 6.8 g/dL (6.4-8.2); Triglycerides 136 mg/dL; Very Low Density Lipoprotein 27 mg/dL (5-40)
== END ==
PROVIDERS: Family Provider Internal Medicine; PCP Internal Medicine; Referring Provider Internal Medicine Cardiovascular Disease; Visit Provider Internal Medicine Cardiovascular Disease
DX: E78.5 Hyperlipidemia, unspecified (principal); I25.10 Atherosclerotic heart disease of native coronary artery without angina pectoris; I10 Essential (primary) hypertension; Z95.5 Presence of coronary angioplasty implant and graft
CPT/HCPCS: 36415; 80061; 80076

== ENCOUNTER → 2020-01-10 14:42 | Outpatient (CLI) | payer OTHER, SELFPAY ==
[2020-01-10 14:12] VITALS: BMI 20.5
[2020-01-10 17:13] LABS: Absolute Lymphocyte Count 1.48 X10^3/uL (0.83-4.51); Absolute Neutrophil Count 1.5 X10^3/uL (2.0-7.7); Basophil# 0.02 X10^3/uL; Basophil% 0.6 % (0-1); Eosinophil# 0.14 X10^3/uL; Eosinophils% 3.9 % (0-5); Hematocrit 37.4 % (40-54); Hemoglobin 13.1 g/dL (13.0-16.5); Lymphocyte # 1.48 X10^3/ul (4.0); Lymphocyte % 41.6 % (19-41); Mean Corpuscular Hgb 39.1 pg (27.0-32.0); Mean Corpuscular Volume 111.6 fL (80-94); Mean Platelet Vol. 10.3 fl (6.2-12.0); Monocyte# 0.44 X10^3/uL; Monocyte% 12.4 % (0-10); NRBC Flagged by Analyzer 0 % (0-5); Neutrophil # 1.47 X10^3/uL (2.7-7.7); Neutrophil % 41.2 % (47-70); Platelet Count 266 K/mm3 (150-450); RBC Distribution Width CV 14.8 % (11.6-14.6); RBC Distribution Width SD 61.4 fl (35.1-43.9); Red Blood Count 3.35 M/mm3 (4.6-6.2); White Blood Count 3.6 K/mm3 (4.4-11.0)
[2020-01-10 17:20] LABS: ALB/GLOB Ratio 0.9 RATIO (0.9-2.4); AST(SGOT) 25 U/L (15-37); Alanine Aminotransfer ALT/SGPT 16 U/L (16-61); Albumin, Serum 3.1 g/dL (3.2-5.0); Alkaline Phosphatase 72 U/L (45-117); Anion Gap 3 (5-15); BUN 3 mg/dL (7-18); Calcium,Total 8.6 mg/dL (8.5-10.1); Chloride 105 mmol/L (98-107); Cholesterol 103 mg/dL (200); EST Glomerular Filtration Rate 150 mL/min (>60); Est Glom Filt Rate - Afr Amer 182 mL/min (>60); Globulin 3.3 g/dL (2.2-4.2); Glucose 92 mg/dL (74-106); High Density Lipoprotein 38 mg/dL; Potassium 3.7 mmol/L (3.5-5.1); Protein, Total 6.4 g/dL (6.4-8.2); Sodium Level 142 mmol/L (136-145); Triglycerides 203 mg/dL; Very Low Density Lipoprotein 41 mg/dL (5-40)
[2020-01-10 17:29] LABS: Thyroid Stim Hormone (TSH) 0.78 uIU/mL (0.358-3.74)
== END ==
PROVIDERS: Nurse Practitioner Family; PCP Internal Medicine; Referring Provider Internal Medicine; Visit Provider Internal Medicine
DX: I10 Essential (primary) hypertension (principal); I25.10 Atherosclerotic heart disease of native coronary artery without angina pectoris
CPT/HCPCS: 36415; 80053; 80061; 84443; 85025

== ENCOUNTER → 2020-01-17 15:10 | Outpatient (CLI) | payer OTHER, SELFPAY ==
[2020-01-11 10:40] VITALS: BMI 22.9
[2020-01-17 17:27] LABS: Vitamin B12 262 pg/mL (211-911)
== END ==
PROVIDERS: PCP Internal Medicine; Referring Provider Nurse Practitioner Family; Visit Provider Nurse Practitioner Family
DX: D53.9 Nutritional anemia, unspecified (principal)
CPT/HCPCS: 36415; 82607; 82746

== ENCOUNTER 2020-02-18 16:43 | Observation (INO) | payer OTHER, SELFPAY ==
[2020-01-23 10:29] VITALS: BMI 20.7
[2020-02-18] VITALS (9 sets, daily range): BP systolic 112–171; BP diastolic 68–106; PULSE 88–98; RESP 15–18; TEMP 36.2–37.2; O2SAT 97–100; BMI 20.7; BMI 20.5
--- NOTE | 2020-02-18 16:53 | EKG12_ITS ---
Test Reason : CP ADMIT Blood Pressure : / mmHG Vent. Rate : 086 BPM Atrial Rate : 086 BPM P-R Int : 142 ms QRS Dur : 090 ms QT Int : 386 ms P-R-T Axes : 068 061 062 degrees QTc Int : 461 ms Normal sinus rhythm Normal ECG When compared with ECG of 18-FEB-2020 16:48, MANUAL COMPARISON REQUIRED, DATA IS UNCONFIRMED Confirmed by MYCHAL HASTINGS, LUISA ([id number]), editor department JUAN PABLO FARFAN ([id number]) on 02/23/2020 1:08:02 PM Referred By: DR PINEDO Confirmed By:LUISA HORTA MD
--- NOTE | 2020-02-18 16:56 | ED.VIS.GEN ---
History of Present Illness Informant: Patient Onset: Today Narrative: 54 year old male with PMH HTN, HLD, CAD, cardiac stents presents with chest pain. One hour ago he was working in the yard and felt lightheaded like he may pass out. He sat down and started having midsternal chest pressure with associated shortness of breath. No radiation. Denies nausea, vomiting, or diaphoresis. This lasted approximately 20 minutes. Denies syncope. After symptoms resolved he was able to walk inside and called 911. He states this felt like his prior ND in 2018. He has no pain currently. He has been compliant with aspirin/Plavix. He states he has had presyncopal episodes almost daily since 2018. He was told to stop his lisinopril last week due to episodes of symptomatic hypotension but it did not help. Denies fevers, chills, cough, leg pain or swelling, or recent surgery or travel. <Lesley Horn - Last Filed: 02/18/20 17:40> <Alex Cespedes - Last Filed: 02/18/20 18:11> Chief Complaint: Chest Pain Past Medical History Past Medical History: - - Hypertension, hyperlipidemia, CAD, cardiac stents Smoking Status: Former smoker - Family History Paternal Family History: Family History (Last Reviewed 01/23/20 @ 13:[address] Yong Amanda MD) Father Heart disease Family History: Reports: Heart Disease <Lesley Horn - Last Filed: 02/18/20 17:40> - Family History Paternal Family History: Family History (Last Reviewed 01/23/20 @ 13:[address] Yong Amanda MD) Father Heart disease <Alex Cespedes - Last Filed: 02/18/20 18:11> - Allergies and Home Meds Allergies/Adverse Reactions: Allergies No Known Allergies Allergy (Verified 02/18/20 16:48) Review of Systems General: Denies: Chills, Fever, Sweats Eyes: Denies: Visual changes - bilaterally, Diplopia ENT: Denies: Rhinorrhea, Sore throat Cardiovascular: Reports: Chest pain, Heart racing. Denies: Palpitations Respiratory: Reports: Dyspnea. Denies: Cough, Orthopnea Gastrointestinal: Denies: Abdominal pain, Nausea, Vomiting, Diarrhea, Constipation Musculoskeletal: Denies: Myalgias, Neck pain, Back pain, Extremity Pain Skin: Denies: Rash, Wounds Neurological: Denies: Headache, Weakness, Numbness <Lesley Horn - Last Filed: 02/18/20 17:40> Physical Exam Vital Signs/Narrative: Vital Signs Temp Pulse Resp BP Pulse Ox 02/18/20 16:53 100 02/18/20 16:44 97.2 F L 98 16 171/106 H 100 Inital Vital Signs reviewed: Yes General: Well nourished, Well developed, No Acute Distress Head: Normocephalic, Atraumatic Eyes: EOMI ENT: Moist mucous membranes, No rhinorrhea Neck: Supple, Nontender Cardiovascular: Regular rate, Regular rhythm, No murmurs Respiratory: No distress, CTA bilaterally, Chest nontender Abdomen: Soft, Nontender, Nondistended, Normal bowel sounds Back: Normal Inspection Extremities: Nontender, No edema Skin: Normal color, No rash Neurological: Alert, Oriented x3, Cranial nerves II-XII grossly intact, Normal Strength, Normal Sensation Psychological: Normal affect, Normal Mood <Lesley Horn - Last Filed: 02/18/20 17:40> Vital Signs/Narrative: Vital Signs Temp Pulse Resp BP Pulse Ox 02/18/20 16:58 154/106 H 02/18/20 16:53 100 02/18/20 16:44 97.2 F L 98 16 171/106 H 100 <Alex Cespedes - Last Filed: 02/18/20 18:11> Diagnostic/Tx/Re-eval Clinical Impression(s) from Imaging Studies Chest X-Ray 02/18/20 17:02 IMPRESSION: Stable, nonacute portable x-ray examination of the chest. Electronically Signed: Huan Carroll MD ([place]) at 17:19 EDT , Service support , Laboratory Data 02/18/20 02/18/20 17:06 17:06 WBC 8.0 RBC 3.73 L Hgb 14.5 Hct 40.0 MCV 107.2 H MCH 38.9 H MCHC 36.3 H RDW Std Deviation 50.9 H RDW Coeff of Nicolas 12.8 Plt Count 267 MPV 10.3 Immature Gran % (Auto) 0.300 Neut % (Auto) 63.2 Lymph % (Auto) 22.8 [place] % (Auto) 11.4 H Eos % (Auto) 2.0 Baso % (Auto) 0.3 Absolute Neuts (auto) 5.0 Absolute Lymphs (auto) 1.81 Nucleated RBC % 0 Sodium 139 Potassium 3.2 L Chloride 104 Carbon Dioxide 27.0 Anion Gap 8 BUN 8 Creatinine 0.88 Estim Creat Clear Calc 97.63 Est GFR (MDRD) Af Amer 115 Est GFR (MDRD) Non-Af 95 BUN/Creatinine Ratio 9.0 L Glucose 112 H Calcium 8.5 Troponin I < 0.015 - Rhythm Strip Rhythm Strip: Sinus Rhythm Rate: 94 Ectopy: None - Medical Decision Making Patient appears well nontoxic. Vital signs show BP of 154/106, otherwise normal. EKG shows normal sinus rhythm with no signs of ischemia. Labs remarkable for potassium of 3.2, initial troponin negative. He took a full dose of aspirin prior to arrival and was given oral potassium replacement here. 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 Patient has a heart score of 5 and would benefit from chest pain observation. Case was discussed with hospitalist and he was transferred to the floor in stable condition. <Lesley Horn - Last Filed: 02/18/20 17:40> - Medical Decision Making Patient presents with substernal chest heaviness with shortness of breath that was resolved on arrival. He does have rather significant cardiac history. His EKG did not show acute ischemia. He has remained pain-free and his enzymes are negative. However, given his history of cardiac disease, I do feel that he would benefit from observation. <Alex Cespedes - Last Filed: 02/18/20 18:11> ED Disposition <Lesley Horn - Last Filed: 02/18/20 17:40> <Alex Cespedes - Last Filed: 02/18/20 18:11> - Plan for ED Patient: Disposition: Acute Care [facility]
--- NOTE | 2020-02-18 17:02 | RAD_ITS ---
STUDY: X-RAY CHEST REASON FOR EXAM: Male, 54 years old. CHEST PAINS AND LIGHTHEAD. HX OF [place] 2 YRS AGO AND STENTS PLACED. TECHNIQUE: AP COMPARISON: 02/18/2020 FINDINGS: EKG leads project over the chest. The lungs are clear and expanded. There is no demonstrated pleural abnormality. Normal size heart. Normal mediastinum and david. Normal visualized pulmonary arteries. Normal visualized aortic arch and descending thoracic aorta. Normal visualized thoracic spine. Normal visualized ribs, clavicles, and shoulders. There is no demonstrated abnormality of the visualized soft tissue structures of the upper abdomen. RAD/Chest 1 View (Portable) IMPRESSION: Stable, nonacute portable x-ray examination of the chest. Electronically Signed: Huan Carroll MD ([place]) at 17:19 EDT , Service support ,
[2020-02-18 17:16] LABS: Absolute Lymphocyte Count 1.81 X10^3/uL (0.83-4.51); Basophil# 0.02 X10^3/uL; Basophil% 0.3 % (0-1); Eosinophil# 0.16 X10^3/uL; Hemoglobin 14.5 g/dL (13.0-16.5); Lymphocyte # 1.81 X10^3/ul (4.0); Lymphocyte % 22.8 % (19-41); Mean Corp Hgb Conc 36.3 g/dL (32-36); Mean Corpuscular Hgb 38.9 pg (27.0-32.0); Mean Corpuscular Volume 107.2 fL (80-94); Mean Platelet Vol. 10.3 fl (6.2-12.0); Monocyte# 0.91 X10^3/uL; Monocyte% 11.4 % (0-10); NRBC Flagged by Analyzer 0 % (0-5); Neutrophil # 5.03 X10^3/uL (2.7-7.7); Neutrophil % 63.2 % (47-70); Platelet Count 267 K/mm3 (150-450); RBC Distribution Width CV 12.8 % (11.6-14.6); RBC Distribution Width SD 50.9 fl (35.1-43.9); Red Blood Count 3.73 M/mm3 (4.6-6.2)
[2020-02-18 17:33] LABS: Anion Gap 8 (5-15); BUN 8 mg/dL (7-18); Calcium,Total 8.5 mg/dL (8.5-10.1); Chloride 104 mmol/L (98-107); Creatinine, Serum 0.88 mg/dL (0.70-1.30); EST Glomerular Filtration Rate 95 mL/min (>60); Est Glom Filt Rate - Afr Amer 115 mL/min (>60); Estimated Creatinine Clearance 97.63 ml/min; Glucose 112 mg/dL (74-106); Potassium 3.2 mmol/L (3.5-5.1); Sodium Level 139 mmol/L (136-145)
--- NOTE | 2020-02-18 17:55 | HP.PCM_ITS ---
<Rolf Lewis - Last Filed: 02/18/20 17:55> Problem List (1) Chest pain Status: Acute (2) CAD (coronary artery disease) Status: Chronic (3) HLD (hyperlipidemia) Status: Chronic (4) Alcoholism Status: Chronic (5) Orthostatic hypotension Status: Chronic (6) Essential (primary) hypertension Status: Chronic (7) Nicotine dependence Status: Chronic Qualifiers: Nicotine product type: unspecified Substance use status: uncomplicated Qualified Code(s): F17.200 - Nicotine dependence, unspecified, uncomplicated (8) Iron deficiency anemia Status: Chronic History of Present Illness Date of Admission: 02/18/20 Chief Complaint: chest pain The patient is a 54 year old M with pmhx notably for CAD with prior stents, pt of Dr. Amanda, HTN, HLD, alcoholism, nicotine abuse, iron def anemia, who presents to the ER with c/o chest pain. This occurred 1-2 hours prior to presentation while the patient was doing yard work. He first felt like he might black out and then felt a severe pressure on his chest. There was tingling in his left arm. This had a duration of approx 20 mins after which it spontaneously resolved. He did state that it felt similar to when he had an RI in the past. He also reports he is lightheaded every day. He saw Dr. Amanda about 2 weeks ago and at that time was told he needed a stress test and his lisinopril was stopped. The patient admits he has started smoking again 5-10 cigarettes per day. The patient then brought up two other concerns. First that he eats very little and has lost about 25 lbs in about 6 months, pt states he just has no appetitie. Lastly, she told us that he has been drinking about 1 750cc bottle of 37% rum per day. She states he has done this for years. He does not deny this at this time. He states he has not been through alcohol withdrawal and has not had withdrawal seizures. He last drank last evening, says he has had none today. [] Past Medical History Past Medical History (Chronic Problems): Chronic Problems (Last Reviewed 01/23/20 @ 13:[address] 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 Yong Amanda MD) Atherosclerotic heart disease of [place] coronary artery without angina pectoris (Chronic) I25.10 Old inferior wall myocardial infarction (Chronic) Onset Date: 01/10/18 I25.2 Essential (primary) hypertension (Chronic) I10 Nicotine dependence (Chronic) F17.200 Lower GI bleed (Chronic) K92.2 Iron deficiency anemia (Chronic) D50.9 Folate deficiency E53.8 GERD (gastroesophageal reflux disease) K21.9 Hiatal hernia K44.9 [address]en[address] fungus B35.[address] elevation myocardial infarction (STEMI) of inferior wall Onset Date: 01/10/18 I21.19 Allergies No Known Allergies Allergy (Verified 02/18/20 16:48) Home Medications: Ambulatory Orders Medication Instructions Recorded Aspirin E.C. [Ecotrin] 81 mg PO DAILY@0800 30 Days #30 tab 01/12/18 boron citrate 3 mg tablet mg PO tab 01/10/19 ferrous sulfate 325 mg (65 mg 325 mg PO DAILY 01/19/19 iron) tablet pantoprazole 40 mg tablet,delayed 40 mg PO DAILY #90 tab 09/25/19 release folic acid 1 mg tablet 1 mg PO DAILY #90 tab 01/19/20 mecobalamin (vitamin B12) 1,000 1,000 mcg SUBLINGUAL DAILY #90 tab 01/19/20 mcg disintegrating tablet,sublingual atorvastatin 40 mg tablet 40 mg PO QHS #90 tab 02/07/20 carvedilol 3.125 mg tablet 3.125 mg PO BID #60 tab 02/07/20 clopidogrel 75 mg tablet 75 mg PO DAILY #90 tab 02/07/20 Surgical History: Surgical History (Last Reviewed 01/23/20 @ 13:[address] Yong Amanda MD) H/O right coronary artery stent placement (Resolved) Onset Date: 01/10/18 Z95.5 [id number]-Distal RCA w/ 3.0 X 16 mm and 3.0 x 38 mm Synergy 01/10/2018 History of endoscopy Z98.890 Surgical History: no surgical history Psychiatric History: No pertinent psych hx Lives: Spouse/ Significant Other Smoking Status: Current every day smoker Tobacco Use: Cigarettes Alcohol: Heavy Drugs: None - *Family History Paternal Family History: Family History (Last Reviewed 02/18/20 @ 18:01 by Rolf BUENO PA) Father Heart disease History Items: Cancer - lung cancer, Heart Disease Review of Systems Constitutional: Denies: Chills, Fever, Weight Change HEENT: Denies: Head Aches, Sinus Congestion, Sinus Drainage Cardiovascular: Reports: Chest Pain, Chest Pressure, Light Headedness. Denies: Edema, Palpitations, Syncope Respiratory: Denies: Cough, Shortness of Breath, Shortness of breath at rest, Sputum production Gastrointestinal: Denies: Abdominal Pain, Diarrhea, Nausea, Vomiting Genitourinary: Denies: Dysuria Musculoskeletal: Denies: Joint Pain, Joint Tenderness, Muscle pain Skin: Denies: Lesions, Rash, Wounds Neurological: Denies: Numbness, Tingling, Focal weakness Psychiatric: Denies: Anxiety, Depression, Homicidal Ideations, Suicidal Ideations Hematologic/ Lymphatic: Denies: Easy Bruising, Easy Bleeding VTE Information - Inpt Only VTE Present on Admission: No VTE Mechan Device Prophylaxis: None VTE Pharm Prophylaxis ordered?: Yes Patient Problems: Active and Suspected Problems (Last Reviewed 01/23/20 @ 13:[address] Yong Amanad MD) Chest pain (Acute) - Physical Exam Vitals/I&O's: Vital Signs Temp Pulse Resp BP Pulse Ox 97.2 F L 98 16 154/106 H 100 02/18/20 16:44 02/18/20 16:44 02/18/20 16:44 02/18/20 16:58 02/18/20 16:53 Oxygen Delivery Method Room Air Weight: 156 lb 11.979 oz Body Mass Index (BMI) 20.7 General: Alert, Oriented x3, Cooperative HEENT: Atraumatic, PERRLA, EOMI, Normocephalic Neck: Supple, No JVD, Negative Carotid Bruits Lungs: Clear to auscultation, Normal air movement Cardiovascular: Regular rate, No murmurs Abdomen: Bowel Sounds Present, Soft, Non Tender Extremities: No edema, Capillary Refill Less than 3 Seconds Skin: No rashes, No breakdown Musculoskeletal: No Tenderness to Palpation of Joints or Extremities Neurological: Cranial nerves II-XII grossly intact Psych/Mental Status: Normal Affect, Appropriate, Alert and oriented to time, place, person, mood and affect Laboratory Results 02/18/20 17:06: WBC 8.0, RBC 3.73 L, Hgb 14.5, Hct 40.0, MCV 107.2 H, MCH 38.9 H , MCHC 36.3 H, RDW Std Deviation 50.9 H, RDW Coeff of Nicolas 12.8, Plt Count 267, MPV 10.3, Immature Gran % (Auto) 0.300, Neut % (Auto) 63.2, Lymph % (Auto) 22.8, Esmeralda % (Auto) 11.4 H, Eos % (Auto) 2.0, Baso % (Auto) 0.3, Absolute Neuts (auto) 5.0, Absolute Lymphs (auto) 1.81, Nucleated RBC % 0 02/18/20 17:06: Sodium 139, Potassium 3.2 L, Chloride 104, Carbon Dioxide 27.0, Anion Gap 8, BUN 8, Creatinine 0.88, Estim Creat Clear Calc 97.63, Est GFR (MDRD) Af Amer 115, Est GFR (MDRD) Non-Af 95, BUN/Creatinine Ratio 9.0 L, Glucose 112 H, Calcium 8.5, Troponin I < 0.015 Assessment/Plan All Active Problems (Last Reviewed 01/23/20 @ 13:[address] Yong Amanda MD) Chest pain (Acute) Syncope (Acute) Dizziness (Acute) H/O right coronary artery stent placement (Resolved 01/10/18) Dizziness (Resolved) 1. Chest pain - in the setting of CAD, prior stent - EKG neg, trop neg, CXR neg. Pt had planned for outpatient stress test. Pt of Dr. Amanda. Will admit to PCU On tele and obtain stress in AM. Cycle enzymes, repeat EKG in AM. FLP in AM. Continue aspirin/plavix/statin. Recently lisinopril stopped due to chronic lightheaded, however I am more concerned that the LH is due to alcoholism. 2. Alcoholism - drinks about 1u816ao bottle of 37% rum per day. Last drink last night. Denies hx withdrawal or seizure. states he has drank like this consistently for years. High risk for severe withdrawal. Start scheduled phenobarbital. PRN ativan, CIWA protocol, thiamine / folate supplementation. 3. Malnutrition - likely due to alcoholism. 25 lb weight loss in 6 months. [employer] consult. Replace K. Check mag, phos. 4. Nicotine abuse - patch. needs complete cessation. 5. HTN - prn hydralazine 6. Hx Orthostatic hypotension - recently lisinopril stopped. This may be due to alcoholism. 7. Hx iron deficiency anemia - macrocytic and not anemic at this time. Continue iron. Pt also on folate and b12. will continue as per #2. DVT ppx: lovenox DC planning: pending results of stress. Needs referral to 180. This patient was seen by Rolf Lewis PA-C under the supervision of Dr. Eddy. <Katrin Eddy - Last Filed: 02/18/20 19:33> History of Present Illness The patient is a 54 year old M [] Past Medical History Medical History: Medical History (Last Reviewed 01/23/20 @ 13:[address] Yong Amanda MD) Atherosclerotic heart disease of [place] coronary artery without angina pectoris (Chronic) I25.10 Old inferior wall myocardial infarction (Chronic) Onset Date: 01/10/18 I25.2 Essential (primary) hypertension (Chronic) I10 Nicotine dependence (Chronic) F17.200 Lower GI bleed (Chronic) K92.2 Iron deficiency anemia (Chronic) D50.9 Folate deficiency E53.8 GERD (gastroesophageal reflux disease) K21.9 Hiatal hernia K44.[address]en[address] fungus B35.[address] elevation myocardial infarction (STEMI) of inferior wall Onset Date: 01/10/18 I21.19 Allergies No Known Allergies Allergy (Verified 02/18/20 16:48) Surgical History: Surgical History (Last Reviewed 01/23/20 @ 13:[address] Yong Amanda MD) H/O right coronary artery stent placement (Resolved) Onset Date: 01/10/18 Z95.5 [id number]-WUB-Iphq-Distal RCA w/ 3.0 X 16 mm and 3.0 x 38 mm Synergy 01/10/2018 History of endoscopy Z98.890 - *Family History Paternal Family History: Family History (Last Reviewed 02/18/20 @ 18:01 by Rolf BUENO, PA) Father Heart disease - Physical Exam Vitals/I&O's: Vital Signs Temp Pulse Resp BP Pulse Ox 98.9 F 92 18 150/83 H 99 02/18/20 18:31 02/18/20 19:00 02/18/20 18:31 02/18/20 18:31 02/18/20 18:31 Oxygen Flow Rate (L/min) 0 Oxygen Delivery Method Room Air Weight: 70.5 kg Body Mass Index (BMI) 20.5 Laboratory Results 02/18/20 17:06: WBC 8.0, RBC 3.73 L, Hgb 14.5, Hct 40.0, MCV 107.2 H, MCH 38.9 H , MCHC 36.3 H, RDW Std Deviation 50.9 H, RDW Coeff of Nicolas 12.8, Plt Count 267, M PV 10.3, Immature Gran % (Auto) 0.300, Neut % (Auto) 63.2, Lymph % (Auto) 22.8, Esmeralda % (Auto) 11.4 H, Eos % (Auto) 2.0, Baso % (Auto) 0.3, Absolute Neuts (auto) 5.0, Absolute Lymphs (auto) 1.81, Nucleated RBC % 0 02/18/20 17:06: Sodium 139, Potassium 3.2 L, Chloride 104, Carbon Dioxide 27.0, Anion Gap 8, BUN 8, Creatinine 0.88, Estim Creat Clear Calc 97.63, Est GFR (MDRD) Af Amer 115, Est GFR (MDRD) Non-Af 95, BUN/Creatinine Ratio 9.0 L, Glucose 112 H, Calcium 8.5, Troponin I < 0.015 02/18/20 17:06: Phosphorus 2.3 L, Magnesium 1.4 L, Total Bilirubin 1.60 H, Direct Bilirubin 0.51 H, AST 57 H, ALT 17, Alkaline Phosphatase 84, Total Protein 6.9, Albumin 3.4, Globulin 3.5 Current Medications Acetaminophen (Tylenol) 650 mg PO Q6H PRN PRN PRN Reason: Pain 1-10 or Fever Aspirin (Ecotrin) 81 mg PO DAILY@0800 [facility] Atorvastatin Calcium (Lipitor) 40 mg PO QHS [facility] Carvedilol (Coreg) 3.125 mg PO BID [facility] Clopidogrel Bisulfate (Plavix) 75 mg PO DAILY [facility] Enoxaparin Sodium (Lovenox) 40 mg SC DAILY [facility] Ferrous Sulfate (Ferrous Sulfate) 325 mg PO DAILY@1200 [facility] Folic Acid (Folic Acid) 1 mg PO DAILY@0800 [facility] Magnesium Sulfate 2 gm/ Sodium (Chloride) 104 mls @ 52 mls/hr IV X1 ONE Stop: 02/18/20 21:21 Influenza Virus Vaccine Quadrival (Flucelvax /Fluzone ) 0.5 ml IM .ONCE ONE Stop: 02/19/20 10:01 Lorazepam (Ativan) 2 mg PO Q2H PRN PRN; Protocol PRN Reason: CIWA score > 8 but <15 Lorazepam (Ativan) 2 mg PO UD PRN; Protocol PRN Reason: CIWA score >/=15. Lorazepam (Ativan) 2 mg IV Q2H PRN PRN; Protocol PRN Reason: CIWA score > 8 but <15 Lorazepam (Ativan) 2 mg IV UD PRN; Protocol PRN Reason: CIWA score >/=15. Morphine Sulfate () 1 mg IV Q3H PRN PRN PRN Reason: Pain Score 6-10/10 Nitroglycerin (Nitrostat) 0.4 mg SUBLINGUAL Q5M PRN PRN Reason: CARDIAC/CHEST PAIN Ondansetron HCl (Zofran) 4 mg IV Q6H PRN PRN PRN Reason: NAUSEA Pantoprazole Sodium (Protonix) 40 mg PO DAILY [facility] Phenobarbital (Phenobarbital) 64.8 mg PO Q6H [facility] Potassium Phos/Sodium Phos (Neutra-Phos Packet) 1 packet PO 4X/DAY [facility] Sodium Chloride () 10 - 40 ml IV UD PRN PRN Reason: SALINE FLUSH [facility]Plan This patient was seen in conjunction with MYLES Santo. I have independently interviewed and examined the patient and reviewed pertinent historical, laboratory, and other data. Please refer to MYLES Santo note for his patient's presentation, findings, and recommendations. I have reviewed and his note and concur with his documentation 54-year-old male with past medical history of CAD status post stent to the RCA 2 years ago, chronic alcoholic, who comes in with a 25 pound weight loss over the past 6 months. History was taken from the patient and her . thinks that patient drinks more than a pint of alcohol every day, and all the time. He has also been having chronic diarrhea due to iron pills. He recently had an EGD with Dr. Finley that was unremarkable for peptic ulcer but showed hiatal hernia. He is due for a colonoscopy. Patient has more than 10 bowel movements a day. Today while doing yard work, he had substernal chest pain that lasted for 20 minutes and felt just like his previous heart attack. He has dizziness and felt like he was going to pass out. He denied any palpitations or leg swelling orthopnea or PND. Vitals in the ED show slightly uncontrolled blood pressure. Admitting blood work showed hemoglobin of 14.5, potassium 3.2, phosphorus 2.2, magnesium 1.4, slightly variation in total bilirubin EKG shows normal sinus rhythm, no acute ST-T changes. Admitting chest x-ray was unremarkable Physical Exam: Gen: Looks in some discomfort, not pale, not jaundiced, dehydrated CVS:HS I +II, regular, no murmurs RESP: Clinically clear to auscultation GI: BS present and normal, soft, nontender, no palpable organs EXT:No edema ASSESSMENT: 1. Acute chest pain, typical, need to rule out ACS 2. Electrolyte imbalances-hypokalemia, hypomagnesemia, hypophosphatemia 3. Hypertension 4. Recent orthostatic hypotension 5. Iron deficiency anemia 6. Malnutrition, moderate 7. Chronic alcohol use disorder 8. Nicotine dependence Plan: Trend troponins Stress test in a.m. Replace electrolytes, recheck in a.m. Continue home blood pressure medication Check iron stores Nutrition consult Alcohol withdrawal protocol Phenobarb taper Social work consult for addiction medicine Nicotine replacement CODE STATUS?full code I discussed goals of care with patient. I went on to explain in details the various types of CODE STATUS-full code, DNR CCA, DNR CC. Patient chose full code. He wants to be aggressively resuscitated and kept on life support if needed Time spent discussing CODE STATUS 16 minutes OBSV E&M: 44646 Initial observation care L3 Procedures: 91129 Advncd Care Plan 30 Min
[2020-02-18 18:57] LABS: AST(SGOT) 57 U/L (15-37); Alanine Aminotransfer ALT/SGPT 17 U/L (16-61); Albumin, Serum 3.4 g/dL (3.2-5.0); Alkaline Phosphatase 84 U/L (45-117); Bilirubin, Direct 0.51 mg/dL (0.00-0.30); Globulin 3.5 g/dL (2.2-4.2); Magnesium 1.4 mg/dL (1.6-2.6); Phosphorus 2.3 mg/dL (2.5-4.9); Protein, Total 6.9 g/dL (6.4-8.2)
--- NOTE | 2020-02-18 19:24 | EKG12_ITS ---
Test Reason : CP Blood Pressure : / mmHG Vent. Rate : 094 BPM Atrial Rate : 094 BPM P-R Int : 140 ms QRS Dur : 082 ms QT Int : 372 ms P-R-T Axes : 067 057 059 degrees QTc Int : 465 ms Normal sinus rhythm Normal ECG Confirmed by MYCHAL HASTINGS, LUISA ([id number]), editor managing director HEATHER BRASHER ([id number]) on 02/20/2020 1:26:12 PM Referred By: Confirmed By:LUISA HORTA MD
[2020-02-18] MEDS: Phenobarbital 32.4 MG Tablet 64.8 MG PO (19:45)
[2020-02-18] MEDS: Enoxaparin 40 MG/0.4 ML Syringe SC (19:46)
[2020-02-18 19:59] LABS: Ferritin 1309 ng/mL (26-388); Iron 183 ug/dL (65-175); Iron Binding Capacity,Total 181 ug/dL (250-450); PERCENT IRON SATURATION 101.1 % (15.0-55.0)
[2020-02-18] MEDS: Na Biphos/Potassium Phosphate PACKET 1 PACKET PO (21:17)
[2020-02-18] MEDS: Atorvastatin Calcium 40 MG Tablet PO (21:17)
[2020-02-18] MEDS: Carvedilol 3.125 MG TABLET PO (21:17)
[2020-02-19] VITALS (7 sets, daily range): BP systolic 108–146; BP diastolic 67–87; PULSE 74–89; RESP 16–18; TEMP 36.7–37.1; O2SAT 93–99; BMI 21.2
[2020-02-19] MEDS: Phenobarbital 32.4 MG Tablet 64.8 MG PO ×2 (00:09→06:08)
[2020-02-19 05:26] LABS: Absolute Lymphocyte Count 2.24 X10^3/uL (0.83-4.51); Basophil# 0.03 X10^3/uL; Basophil% 0.4 % (0-1); Eosinophils% 4.7 % (0-5); Hematocrit 40.7 % (40-54); Hemoglobin 14.6 g/dL (13.0-16.5); Lymphocyte # 2.24 X10^3/ul (4.0); Lymphocyte % 26.4 % (19-41); Mean Corp Hgb Conc 35.9 g/dL (32-36); Mean Corpuscular Volume 108.8 fL (80-94); Mean Platelet Vol. 10.5 fl (6.2-12.0); Monocyte# 0.83 X10^3/uL; Monocyte% 9.8 % (0-10); NRBC Flagged by Analyzer 0 % (0-5); Neutrophil # 4.99 X10^3/uL (2.7-7.7); Neutrophil % 58.6 % (47-70); Platelet Count 230 K/mm3 (150-450); RBC Distribution Width CV 12.8 % (11.6-14.6); RBC Distribution Width SD 51.8 fl (35.1-43.9); Red Blood Count 3.74 M/mm3 (4.6-6.2); White Blood Count 8.5 K/mm3 (4.4-11.0)
[2020-02-19 05:48] LABS: AST(SGOT) 42 U/L (15-37); Alanine Aminotransfer ALT/SGPT 16 U/L (16-61); Albumin, Serum 3.1 g/dL (3.2-5.0); Alkaline Phosphatase 84 U/L (45-117); Anion Gap 4 (5-15); BUN 6 mg/dL (7-18); BUN/Creat Ratio 9.6 RATIO (10-20); Calcium,Total 8.2 mg/dL (8.5-10.1); Chloride 105 mmol/L (98-107); Cholesterol 115 mg/dL (200); Creatinine, Serum 0.62 mg/dL (0.70-1.30); EST Glomerular Filtration Rate 143 mL/min (>60); Est Glom Filt Rate - Afr Amer 173 mL/min (>60); Globulin 3.2 g/dL (2.2-4.2); Glucose 98 mg/dL (74-106); High Density Lipoprotein 43 mg/dL; Magnesium 2.3 mg/dL (1.6-2.6); Phosphorus 3.2 mg/dL (2.5-4.9); Potassium 3.5 mmol/L (3.5-5.1); Protein, Total 6.3 g/dL (6.4-8.2); Sodium Level 137 mmol/L (136-145); Triglycerides 201 mg/dL; Very Low Density Lipoprotein 40 mg/dL (5-40)
--- NOTE | 2020-02-19 05:55 | EKG12_ITS ---
Test Reason : AM EKG Blood Pressure : / mmHG Vent. Rate : 072 BPM Atrial Rate : 072 BPM P-R Int : 156 ms QRS Dur : 088 ms QT Int : 418 ms P-R-T Axes : 075 065 072 degrees QTc Int : 457 ms Normal sinus rhythm Normal ECG When compared with ECG of 18-FEB-2020 19:31, MANUAL COMPARISON REQUIRED, DATA IS UNCONFIRMED Confirmed by OSIRIS HASTINGS, MERON ([id number]), assistant editor JUAN PABLO FARFAN ([id number]) on 02/29/2020 1:07:02 PM Referred By: DR PINEDO Confirmed By:TOBY NEWELL MD
[2020-02-19] MEDS: Aspirin E.C. 81 MG Tablet PO (06:09)
[2020-02-19] MEDS: Clopidogrel Bisulfate 75 MG Tablet PO (06:09)
[2020-02-19] MEDS: Pantoprazole Sodium 40 MG Tablet PO ×2 (10:33)
[2020-02-19] MEDS: Thiamine Hydrochloride 100 MG Tablet PO (10:33)
[2020-02-19] MEDS: Ferrous Sulfate 325 MG Tablet PO (10:33)
[2020-02-19] MEDS: Folic Acid 1 MG Tablet PO (10:34)
[2020-02-19] MEDS: Na Biphos/Potassium Phosphate PACKET 1 PACKET PO (10:34)
[2020-02-19] MEDS: Carvedilol 3.125 MG TABLET PO (10:34)
--- NOTE | 2020-02-19 11:24 | PCM.DC ---
- Discharge Diagnoses Current Active Problems: Current Active and Chronic Problems (Last Reviewed 01/23/20 @ 13:[address] Yong Amanda MD) 1. Acute chest pain, unclear etiology, negative stress testing with CAD history 2. Electrolyte imbalances including hypokalemia, hypomagnesemia, hypophosphatemia secondary to EtOH abuse 3. Hypertension 4. Recent orthostatic hypotension 5. Iron deficiency anemia with intolerance current Ferrous Sulfate regimen 6. Malnutrition, moderate 7. Chronic alcohol use disorder 8. Nicotine dependence You will use the following diet at home:: Cardiac Your food should be the consistency of: Regular Your liquids should be the consistency of: Regular/Thin Discharge Activity: - - Encourage routine activity. If recurrent chest discomfort/pressure with activities, please notify Dr. Amanda office immediately and return to ED for further evaluation. May resume sexual activity in: No Restrictions Weight Bearing Status: Weight bearing as tolerated Call your doctor if you observe: Fever of 101 or Higher, Inability to urinate, Inability to have a bowel movement, Shortness of breath, Dizziness, Fainting spells, Chest pain, Uncontrolled pain, - - Worsening diarrhea. We have changed your iron supplementation from ferrous sulfate to ferrous gluconate to see if this improves your gastrointestinal tolerance of the medication. Instructions: ED Chest Pain Atypical Unkn Cause, ED Chest Pain NonCardiac, Warning Signs of a Heart Attack, Angina, Recognizing a Heart Attack or Angina, ED Alcohol Abuse, Addiction: Your Treatment Options, Why Do You Smoke?, Planning to Quit Smoking, Getting Support for Quitting Smoking Additional Instructions: The chest pain you experienced is suspected to be not from your heart. The stress test is negative and your heart squeezed normally. The radiation monitor you wore showed no problem with the rhythm of your heart. Additionally, the cardiac enzyme series performed remained normal. Sometimes chest pain can come from a problem with the muscles or skeleton and/or associated with straining or doing some strenuous activity you do not normally perform. Generally rest and discomfort medications can alleviate this discomfort if these medications are appropriate for you to take. Chest pain can also be associated with anxiety and with this you frequently have racing heart, trouble sleeping and irritability. It can also come from gastroesophageal reflux disease or heartburn. People who smoke experience increased heartburn because nicotine decreases the pressure in the lower esophageal sphincter and causes reflux. This type of discomfort is well treated with drinking a large glass of cold water which strips the acid out of the esophagus or taking Mylanta, Maalox or Pepto-Bismol. Other foods to avoid if you have reflux are chocolate, peppermint and calcium containing products such as Tums. During the admission you noted ongoing diarrhea with iron supplementation. Please follow-up closely with your primary care physician and if recurrent please have stool culture and c-diff testing. If these are unremarkable, your physician may consider starting anti-diarrheal medications. We discussed Alcohol abuse and treatment. At this time you declined inpatient treatment. If you ever decide this is a course you are interested in pursuing please do not hesitate to contact the hospital and this can be set up. Allergies/Adverse Reactions: Allergies No Known Allergies Allergy (Verified 02/18/20 16:48) Medications to take at Discharge Aspirin E.C. [Ecotrin] 81 mg PO DAILY@0800 30 Days #30 tab 01/12/18 boron citrate 3 mg tablet mg PO tab 01/10/19 pantoprazole 40 mg tablet,delayed release 40 mg PO DAILY #90 tab 09/25/19 folic acid 1 mg tablet 1 mg PO DAILY #90 tab 01/19/20 mecobalamin (vitamin B12) 1,000 mcg disintegrating tablet,sublingual 1,000 mcg SUBLINGUAL DAILY #90 tab 01/19/20 atorvastatin 40 mg tablet 40 mg PO QHS #90 tab 02/07/20 carvedilol 3.125 mg tablet 3.125 mg PO BID #60 tab 02/07/20 clopidogrel 75 mg tablet 75 mg PO DAILY #90 tab 02/07/20 Ferrous Gluconate 325 mg PO DAILY@0800 #30 tab 02/19/20 Multivitamin 1 each PO DAILY #30 tablet 02/19/20 Thiamine Hydrochloride [Vitamin B1] 100 mg PO DAILYCM #30 tab 02/19/20 The following prescriptions were given: Ferrous Gluconate 325 mg PO DAILY@0800 #30 tab [facility]: [id number] Multivitamin 1 each PO DAILY #30 tablet Thiamine Hydrochloride [Vitamin B1] 100 mg PO DAILYCM #30 tab [facility]: [id number] Primary Care Physician: Peter Chaudhari MD [Primary Care Provider] - Please follow up with your Primary Care Physician in: Follow-up within 3-5 days to review admission. Test Results: Test results from this visit will be discussed in further detail at your follow-up appointment, if applicable. Please Follow Up With: Yong Amanda MD When: Please follow-up as previously arranged or within the next 4-6 weeks. Proposed Discharge Date: 02/19/20
--- NOTE | 2020-02-19 11:52 | PHA.DC.MR ---
Pharmacy Service has performed discharge medication reconciliation for this patient. Medication list reviewed by pharmacy to preserve PPE, as patient is currently in isolation. The patient's discharge medication list was reviewed for discrepancies and discrepancies were resolved. Home Medications Aspirin E.C. [Ecotrin] 81 mg PO DAILY@0800 30 Days #30 tab 01/12/18 boron citrate 3 mg tablet mg PO tab 01/10/19 pantoprazole 40 mg tablet,delayed release 40 mg PO DAILY #90 tab 09/25/19 folic acid 1 mg tablet 1 mg PO DAILY #90 tab 01/19/20 mecobalamin (vitamin B12) 1,000 mcg disintegrating tablet,sublingual 1,000 mcg SUBLINGUAL DAILY #90 tab 01/19/20 atorvastatin 40 mg tablet 40 mg PO QHS #90 tab 02/07/20 carvedilol 3.125 mg tablet 3.125 mg PO BID #60 tab 02/07/20 clopidogrel 75 mg tablet 75 mg PO DAILY #90 tab 02/07/20 Ferrous Gluconate 325 mg PO DAILY@0800 #30 tab 02/19/20 Multivitamin 1 ea PO DAILY #30 tab 02/19/20 Thiamine Hydrochloride [Vitamin B1] 100 mg PO DAILYCM #30 tab 02/19/20
--- NOTE | 2020-02-19 11:52 | PCM.NTREPORT ---
Nutrition Therapy Report - History Nutrition Services has been consulted to:: Manage nutrient details of diet order Current diet / nutrition support order:: Cardiac/heart Healthy--select - Anthropometric Measurements Height:: 6 ft 1 in Weight:: 72.8 kg Body Mass Index (BMI):: 21.2 - Relevant Labs Relevant Labs:: RBC 3.74 M/mm3 (4.6-6.2) L 02/19/20 05:08 MCV 108.8 fL (80-94) H 02/19/20 05:08 MCH 39.0 pg (27.0-32.0) H 02/19/20 05:08 MCHC 36.3 g/dL (32-36) H 02/18/20 17:06 RDW Std Deviation 51.8 fl (35.1-43.9) H 02/19/20 05:08 Camp % (Auto) 11.4 % (0-10) H 02/18/20 17:06 Potassium 3.2 mmol/L (3.5-5.1) L 02/18/20 17:06 Anion Gap 4 (5-15) L 02/19/20 05:08 BUN 6 mg/dL (7-18) L 02/19/20 05:08 Creatinine 0.62 mg/dL (0.70-1.30) L 02/19/20 05:08 BUN/Creatinine Ratio 9.6 RATIO (10-20) L 02/19/20 05:08 Glucose 112 mg/dL (74-106) H 02/18/20 17:06 Calcium 8.2 mg/dL (8.5-10.1) L 02/19/20 05:08 Phosphorus 2.3 mg/dL (2.5-4.9) L 02/18/20 17:06 Magnesium 1.4 mg/dL (1.6-2.6) L 02/18/20 17:06 Iron 183 ug/dL (65-175) H 02/18/20 17:06 TIBC 181 ug/dL (250-450) L 02/18/20 17:06 Iron Saturation 101.1 % (15.0-55.0) H 02/18/20 17:06 Ferritin 1309 ng/mL (26-388) H 02/18/20 17:06 Total Bilirubin 1.70 mg/dL (0.20-1.00) H 02/19/20 05:08 Direct Bilirubin 0.51 mg/dL (0.00-0.30) H 02/18/20 17:06 AST 42 U/L (15-37) H 02/19/20 05:08 Total Protein 6.3 g/dL (6.4-8.2) L 02/19/20 05:08 Albumin 3.1 g/dL (3.2-5.0) L 02/19/20 05:08 Triglycerides 201 mg/dL (-199) H 02/19/20 05:08 - Assessment Food / Nutrition-Related History:: Pt reports PO/alexander has been ok--adjusting to new dentures so, some difficulty chewing. Pt reports UBW~185-190 lbs has had some wt loss~25-30 lbs x past 6 months or so; calculated~15% wt loss x ~6 mos is significant for malnutrition especially given decreased intake related to difficulty chewing/new dentures. PO to be established as pt was NPO for stress test this AM and pending lunch meal at this time. Will offer ONS as tolerated to help replete kcal/pro. - Nutrition Diagnosis Problem / Etiology / Signs & Symptoms (PES):: Protein/Calorie Malnutrition of behavioral/environmental/social etiology related to difficulty chewing/new dentures; ETOH abuse as documented as evidenced by calculated ~15% wt loss x 6 months and reported inadequate oral intake prior to admission. Evidence of Malnutrition Exists:: Yes Severe PCM:: Social & Environmental circumstances - Nutrition Intervention Nutrition Prescription:: Estimated Nutrition Needs for repletion~[id number] kcal and ~90-100 gm protein/day. - Food / Nutrient Delivery Interventions Summary of nutrition intervention:: Will offer ONS and extra protein with meals---240 ml ensure clear/magic cup BID and extra 1-2 oz lean meat/pro Q meal as tolerated. Nutrition support ordered as / adjusted to:: No TF/TPN at this time; will adjust ONS as per pt acceptance/tolerance. Nutrition education provided?: Yes - MNT Monitoring Further MNT monitoring and evaluation required?: Yes MNT Follow-up in:: 3-5 days
--- NOTE | 2020-02-19 13:30 | STRESSREP ---
Stress Test Report Exercise myocardial perfusion stress test. 54-year-old male with a history of chest pain. Stress protocol: Resting EKG demonstrates normal sinus rhythm with a rate of 72 bpm normal intervals are noted resting blood pressure is 146/78 mmHg. The patient exercised according to regular Freedom protocol for a total duration of 6-1/2 minutes the maximum heart rate attained was 150 bpm which was 89% of maximum predicted heart rate the maximum workload was 7.7 metabolic equivalents. At rest there were no ST or T wave changes noted to suggest ischemia at peak exercise upsloping ST changes were noted with no meet the criteria for ischemia. No clinical angina was noted. The test was terminated due to target heart rate being achieved and leg weakness. Myocardial perfusion protocol. 11.5 mCi of technetium 99m sestamibi was injected at rest. The patient exercised according to regular Freedom protocol and at peak exercise 32.9 mCi of technetium 99m sestamibi was injected. Stress images were obtained. Stress and rest images were reconstructed and compared in the short axis vertical long horizontal long axis. Gated images were also obtained. Perfusion SPECT analysis: Review of the stress images demonstrate normal uptake of tracer noted in all areas of the myocardium the resting images similarly demonstrate normal uptake of tracer noted in all areas of the myocardium. No reversibility is noted suggest ischemia no previous infarct is noted. Gated SPECT analysis: The gated ejection fraction is 61%. Conclusion: Normal exercise myocardial perfusion stress test at a moderate workload. Preserved ejection fraction.
--- NOTE | 2020-02-19 14:16 | CASEMGMT ---
Per physician and PA patient is not interested in help with quitting drinking alcohol. He was however, fine with SW giving him resources. SW stopped by patient's room and gave him a folder with resources for assistance with substance abuse. Elaine CHACON MSW
--- NOTE | 2020-02-19 15:05 | PCM.DC.SUM ---
Discharge Date and Diagnosis Date of Admission: 02/18/20 Date of Discharge: 02/19/20 - Primary Discharge Diagnosis Acute Problems: Chest pain - musculoskeletal Moderate Malnutrition with hypophosphatemia, hypomagnesemia, and hypokalemia 2/2 alcoholism Alcohol abuse CAD - Secondary Discharge Diagnosis Chronic Problems: Chronic Problems (Last Reviewed 01/23/20 @ 13:[address] 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 Stress test: Gated SPECT analysis: The gated ejection fraction is 61%. Conclusion: Normal exercise myocardial perfusion stress test at a moderate workload. Preserved ejection fraction. Operations: None Procedures: Stress test Summary of Care Provided: Hospital Course: The patient is a 54 year old M with pmhx of CAD with prior stent who presented to the ER with c/o chest pain. The patient developed chest pain while working in the yard that lasted for 20 minutes and associated with tingling in the left arm and feeling that he might black out. He was planning on having an outpatient stress per Dr. Amanda. He recently had been taken off lisinopril for chronic lightheadedness. He also recently started smoking cigarettes again and was drinking heavily. EKG, trop, CXR were negative. He was admitted for CP workup. Trop neg x 3, EKG negative, stress test the following day was negative. His expressed concerns about his alcohol use. He admitted to drinking approx 750 cc of 37% rum daily. He was placed on CIWA protocol while here with scheduled phenobarbital. We discussed his drinking and offered him detox services. He felt that his drinking was not a problem and did not want detoxed or to follow up with 180. We provided him with resources if he would like to seek help. I am concerned that his chronic lightheadedness was not due to lisinopril but heavy alcohol use instead. He has mildly abnormal LFTs and malnutrition c/w heavy drinking. [employer] was consulted as he had been losing weight approx 25 lbs over 6 months. He was discharged home in stable condition and will need close follow up with his PCP. This patient was seen by Rolf Lewis PA-C under the supervision of Doctor Caroline. [] - Physical Exam Vitals/I&O's: Vital Signs Temp Pulse Resp BP Pulse Ox 98.3 F 79 18 146/87 H 99 02/19/20 10:28 02/19/20 10:28 02/19/20 10:28 02/19/20 10:28 02/19/20 10:28 Oxygen Flow Rate (L/min) 0 Oxygen Delivery Method Room Air Weight: 160 lb 7.944 oz Body Mass Index (BMI) 21.2 Intake and Output for Last 24 Hours 02/17/20 02/18/20 02/19/20 23:59 23:59 23:59 Intake Total 304 / 304 480 / 480 Balance 304 / 304 480 / 480 General: Alert, Oriented x3, Cooperative HEENT: Atraumatic, PERRLA, EOMI, Normocephalic Neck: Supple, No JVD, Negative Carotid Bruits Lungs: Clear to auscultation, Normal air movement Cardiovascular: Regular rate, No murmurs Abdomen: Bowel Sounds Present, Soft, Non Tender Extremities: No edema, Capillary Refill Less than 3 Seconds Skin: No rashes, No breakdown Musculoskeletal: No Tenderness to Palpation of Joints or Extremities Neurological: Cranial nerves II-XII grossly intact Psych/Mental Status: Normal Affect, Appropriate, Alert and oriented to time, place, person, mood and affect Laboratory Results 02/18/20 17:06: WBC 8.0, RBC 3.73 L, Hgb 14.5, Hct 40.0, MCV 107.2 H, MCH 38.9 H, MCHC 36.3 H, RDW Std Deviation 50.9 H, RDW Coeff of Nicolas 12.8, Plt Count 267, MPV 10.3, Immature Gran % (Auto) 0.300, Neut % (Auto) 63.2, Lymph % (Auto) 22.8, Norman % (Auto) 11.4 H, Eos % (Auto) 2.0, Baso % (Auto) 0.3, Absolute Neuts (auto) 5.0, Absolute Lymphs (auto) 1.81, Nucleated RBC % 0 02/18/20 17:06: Sodium 139, Potassium 3.2 L, Chloride 104, Carbon Dioxide 27.0, Anion Gap 8, BUN 8, Creatinine 0.88, Estim Creat Clear Calc 97.63, Est GFR (MDRD) Af Amer 115, Est GFR (MDRD) Non-Af 95, BUN/Creatinine Ratio 9.0 L, Glucose 112 H, Calcium 8.5, Troponin I < 0.015 02/18/20 17:06: Phosphorus 2.3 L, Magnesium 1.4 L, Total Bilirubin 1.60 H, Direct Bilirubin 0.51 H, AST 57 H, ALT 17, Alkaline Phosphatase 84, Total Protein 6.9, Albumin 3.4, Globulin 3.5 02/18/20 17:06: Iron 183 H, TIBC 181 L, Iron Saturation 101.1 H, Ferritin 1309 H 02/18/20 20:15: Troponin I < 0.015 02/18/20 22:49: Troponin I < 0.015 02/19/20 05:08: Sodium 137, Potassium 3.5, Chloride 105, Carbon Dioxide 28.0, Anion Gap 4 L, BUN 6 L, Creatinine 0.62 L, Estim Creat Clear Calc 137.40, Est GFR (MDRD) Af Amer 173, Est GFR (MDRD) Non-Af 143, BUN/Creatinine Ratio 9.6 L, Glucose 98, Calcium 8.2 L, Phosphorus 3.2, Magnesium 2.3, Total Bilirubin 1.70 H, AST 42 H, ALT 16, Alkaline Phosphatase 84, Total Protein 6.3 L, Albumin 3.1 L, Globulin 3.2, Albumin/Globulin Ratio 1.0, Triglycerides 201 H, Cholesterol 115, LDL Cholesterol 32, VLDL Cholesterol 40, HDL Cholesterol 43 02/19/20 05:08: WBC 8.5, RBC 3.74 L, Hgb 14.6, Hct 40.7, MCV 108.8 H, MCH 39.0 H, MCHC 35.9, RDW Std Deviation 51.8 H, RDW Coeff of Nicolas 12.8, Plt Count 230, MPV 10.5, Immature Gran % (Auto) 0.100, Neut % (Auto) 58.6, Lymph % (Auto) 26.4, Norman % (Auto) 9.8, Eos % (Auto) 4.7, Baso % (Auto) 0.4, Absolute Neuts (auto) 5.0, Absolute Lymphs (auto) 2.24, Nucleated RBC % 0 Discharge Diet: Low fat/ Low Cholesterol, 2000 mg Sodium Diet Discharge Activity: - - Encourage routine activity. If recurrent chest discomfort/pressure with activities, please notify Dr. Amanda office immediately and return to ED for further evaluation. May resume sexual activity in: No Restrictions Weight Bearing Status: Weight bearing as tolerated Call your doctor if you observe: Fever of 101 or Higher, Inability to urinate, Inability to have a bowel movement, Shortness of breath, Dizziness, Fainting spells, Chest pain, Uncontrolled pain, - - Worsening diarrhea. We have changed your iron supplementation from ferrous sulfate to ferrous gluconate to see if this improves your gastrointestinal tolerance of the medication. Home Medications: Medications to take at Discharge Aspirin E.C. [Ecotrin] 81 mg PO DAILY@0800 30 Days #30 tab 01/12/18 boron citrate 3 mg tablet mg PO tab 01/10/19 pantoprazole 40 mg tablet,delayed release 40 mg PO DAILY #90 tab 09/25/19 folic acid 1 mg tablet 1 mg PO DAILY #90 tab 01/19/20 mecobalamin (vitamin B12) 1,000 mcg disintegrating tablet,sublingual 1,000 mcg SUBLINGUAL DAILY #90 tab 01/19/20 atorvastatin 40 mg tablet 40 mg PO QHS #90 tab 02/07/20 carvedilol 3.125 mg tablet 3.125 mg PO BID #60 tab 02/07/20 clopidogrel 75 mg tablet 75 mg PO DAILY #90 tab 02/07/20 Ferrous Gluconate 325 mg PO DAILY@0800 #30 tab 02/19/20 Multivitamin 1 ea PO DAILY #30 tab 02/19/20 Thiamine Hydrochloride [Vitamin B1] 100 mg PO DAILYCM #30 tab 02/19/20 Following Prescriptions Were Given to Patient: Ferrous Gluconate 325 mg PO DAILY@0800 #30 tab Transmission Status: Received by [facility] [id number] Multivitamin 1 ea PO DAILY #30 tab Thiamine Hydrochloride [Vitamin B1] 100 mg PO DAILYCM #30 tab Transmission Status: Received by [facility] [id number] Primary Care Physician: Peter Chaudhari MD [Primary Care Provider] - Please follow up with your Primary Care Physician in: Follow-up within 3-5 days to review admission. Please Follow Up With: Yong Amanda MD When: Please follow-up as previously arranged or within the next 4-6 weeks. Please Follow Up With: Peter Chaudhari MD Patient Instructions: Recognizing a Heart Attack or Angina, Addiction: Your Treatment Options, Why Do You Smoke?, Planning to Quit Smoking, Getting Support for Quitting Smoking, Angina, Warning Signs of a Heart Attack, ED Chest Pain NonCardiac, ED Chest Pain Atypical Unkn Cause, ED Alcohol Abuse Disposition: Home Minutes spent on discharge:: 35 Patient Condition:: Stable Medical Necessity - Tobacco Use Smoking Status: Current every day smoker Tobacco Use: Cigarettes Meaningful Use Info Meaningful Use Diagnoses (Choose all that apply): None applicable
== END 2020-02-19 11:31 | disposition home or self-care (01) ==
LOC: ED 17:46 → PCU 18:39
PROVIDERS: Emergency Medicine; Physician Assistant; Admitting Provider Internal Medicine; Emergency Provider Physician Assistant; PCP Internal Medicine; Visit Provider Family Medicine
DX: R07.89 Other chest pain (principal); I10 Essential (primary) hypertension; E78.5 Hyperlipidemia, unspecified; I25.10 Atherosclerotic heart disease of native coronary artery without angina pectoris; Z23 Encounter for immunization; I25.2 Old myocardial infarction; D50.9 Iron deficiency anemia, unspecified; K21.9 Gastro-esophageal reflux disease without esophagitis; F17.210 Nicotine dependence, cigarettes, uncomplicated; E44.0 Moderate protein-calorie malnutrition; Z68.21 Body mass index [BMI] 21.0-21.9, adult; F10.239 Alcohol dependence with withdrawal, unspecified; Z95.5 Presence of coronary angioplasty implant and graft; Z79.899 Other long term (current) drug therapy; Z79.02 Long term (current) use of antithrombotics/antiplatelets; Z79.82 Long term (current) use of aspirin; E87.6 Hypokalemia; E83.42 Hypomagnesemia; E83.39 Other disorders of phosphorus metabolism
CPT/HCPCS: 36415; 71045; 78452; 80048; 80053; 80061; 80076; 82728; 83540; 83550; 83735; 84100; 84484; 85025; 87493; 87506; 93005; 93017; 96372; 97802; 99218; 99285; 99406; A9500; 90686; A4216; G0378

== ENCOUNTER → 2020-02-26 14:45 | Outpatient (CLI) | payer OTHER, SELFPAY ==
[2020-02-26 14:22] VITALS: BMI 21.2
[2020-02-26 17:01] LABS: Absolute Neutrophil Count 5.9 X10^3/uL (2.0-7.7); Basophil# 0.03 X10^3/uL; Basophil% 0.3 % (0-1); Eosinophil# 0.36 X10^3/uL; Eosinophils% 4.1 % (0-5); Hematocrit 40.2 % (40-54); Hemoglobin 13.7 g/dL (13.0-16.5); Lymphocyte % 17.2 % (19-41); Mean Corp Hgb Conc 34.1 g/dL (32-36); Mean Corpuscular Hgb 37.8 pg (27.0-32.0); Mean Platelet Vol. 10.9 fl (6.2-12.0); Monocyte# 0.86 X10^3/uL; Monocyte% 9.9 % (0-10); NRBC Flagged by Analyzer 0 % (0-5); Neutrophil # 5.92 X10^3/uL (2.7-7.7); Neutrophil % 67.9 % (47-70); Platelet Count 347 K/mm3 (150-450); RBC Distribution Width CV 12.9 % (11.6-14.6); RBC Distribution Width SD 53.1 fl (35.1-43.9); Red Blood Count 3.62 M/mm3 (4.6-6.2); White Blood Count 8.7 K/mm3 (4.4-11.0)
[2020-02-26 17:14] LABS: ALB/GLOB Ratio 0.9 RATIO (0.9-2.4); AST(SGOT) 24 U/L (15-37); Alanine Aminotransfer ALT/SGPT 22 U/L (16-61); Albumin, Serum 3.3 g/dL (3.2-5.0); Alkaline Phosphatase 80 U/L (45-117); Anion Gap 5 (5-15); BUN 7 mg/dL (7-18); BUN/Creat Ratio 10.7 RATIO (10-20); Calcium,Total 9.3 mg/dL (8.5-10.1); Chloride 109 mmol/L (98-107); Creatinine, Serum 0.66 mg/dL (0.70-1.30); EST Glomerular Filtration Rate 135 mL/min (>60); Est Glom Filt Rate - Afr Amer 163 mL/min (>60); Globulin 3.6 g/dL (2.2-4.2); Glucose 94 mg/dL (74-106); Magnesium 1.8 mg/dL (1.6-2.6); Potassium 4.3 mmol/L (3.5-5.1); Protein, Total 6.9 g/dL (6.4-8.2); Sodium Level 141 mmol/L (136-145)
== END ==
LOC: BIMLAB 14:46
PROVIDERS: PCP Internal Medicine; Visit Provider Internal Medicine
DX: R07.9 Chest pain, unspecified (principal); R42 Dizziness and giddiness; F10.20 Alcohol dependence, uncomplicated; I10 Essential (primary) hypertension
CPT/HCPCS: 36415; 80053; 83735; 85025

== ENCOUNTER → 2020-05-27 15:27 | Outpatient (CLI) | payer OTHER, SELFPAY ==
[2020-05-27 14:52] VITALS: BMI 22.8
[2020-05-27 17:00] LABS: Absolute Lymphocyte Count 1.97 X10^3/uL (0.83-4.51); Absolute Neutrophil Count 6.3 X10^3/uL (2.0-7.7); Basophil# 0.05 X10^3/uL; Basophil% 0.5 % (0-1); Eosinophil# 0.48 X10^3/uL; Hematocrit 40.3 % (40-54); Hemoglobin 13.6 g/dL (13.0-16.5); Lymphocyte # 1.97 X10^3/ul (4.0); Lymphocyte % 20.4 % (19-41); Mean Corp Hgb Conc 33.7 g/dL (32-36); Mean Corpuscular Hgb 34.5 pg (27.0-32.0); Mean Corpuscular Volume 102.3 fL (80-94); Mean Platelet Vol. 10.7 fl (6.2-12.0); Monocyte# 0.86 X10^3/uL; Monocyte% 8.9 % (0-10); NRBC Flagged by Analyzer 0 % (0-5); Neutrophil # 6.26 X10^3/uL (2.7-7.7); Platelet Count 284 K/mm3 (150-450); RBC Distribution Width CV 13.4 % (11.6-14.6); RBC Distribution Width SD 51.1 fl (35.1-43.9); Red Blood Count 3.94 M/mm3 (4.6-6.2); White Blood Count 9.6 K/mm3 (4.4-11.0)
[2020-05-27 17:08] LABS: ALB/GLOB Ratio 0.8 RATIO (0.9-2.4); AST(SGOT) 24 U/L (15-37); Alanine Aminotransfer ALT/SGPT 14 U/L (16-61); Albumin, Serum 3.2 g/dL (3.2-5.0); Alkaline Phosphatase 98 U/L (45-117); Anion Gap 5 (5-15); BUN 6 mg/dL (7-18); BUN/Creat Ratio 8.6 RATIO (10-20); Calcium,Total 9.1 mg/dL (8.5-10.1); Chloride 101 mmol/L (98-107); EST Glomerular Filtration Rate 126 mL/min (>60); Est Glom Filt Rate - Afr Amer 152 mL/min (>60); Glucose 105 mg/dL (74-106); Potassium 3.9 mmol/L (3.5-5.1); Protein, Total 7.2 g/dL (6.4-8.2); Sodium Level 137 mmol/L (136-145)
== END ==
PROVIDERS: PCP Internal Medicine; Referring Provider Internal Medicine; Visit Provider Internal Medicine
DX: E78.5 Hyperlipidemia, unspecified (principal); I25.10 Atherosclerotic heart disease of native coronary artery without angina pectoris; I10 Essential (primary) hypertension
CPT/HCPCS: 36415; 80053; 85025

== ENCOUNTER → 2020-05-28 13:15 | Outpatient (CLI) | payer OTHER, SELFPAY ==
[2020-05-27 14:52] VITALS: BMI 22.8
== END ==
PROVIDERS: PCP Internal Medicine; Referring Provider Internal Medicine; Visit Provider Internal Medicine
DX: K92.2 Gastrointestinal hemorrhage, unspecified (principal)
CPT/HCPCS: 82274

== ENCOUNTER → 2020-12-04 09:56 | Outpatient (CLI) | payer OTHER, SELFPAY ==
[2020-12-04 09:35] VITALS: BMI 22.8
[2020-12-04 12:19] LABS: Absolute Lymphocyte Count 1.47 X10^3/uL (0.83-4.51); Absolute Neutrophil Count 2.3 X10^3/uL (2.0-7.7); Basophil# 0.03 X10^3/uL; Basophil% 0.6 % (0-1); Eosinophils% 6.5 % (0-5); Hematocrit 40.9 % (40-54); Lymphocyte # 1.47 X10^3/ul (0.83-4.51); Lymphocyte % 31.6 % (19-41); Mean Corp Hgb Conc 34.2 g/dL (32-36); Mean Corpuscular Hgb 33.8 pg (27.0-32.0); Mean Corpuscular Volume 98.8 fL (80-94); Mean Platelet Vol. 10.3 fl (6.2-12.0); Monocyte# 0.49 X10^3/uL; Monocyte% 10.5 % (0-10); NRBC Flagged by Analyzer 0 % (0-5); Neutrophil # 2.32 X10^3/uL (2.7-7.7); Neutrophil % 49.9 % (47-70); Platelet Count 278 K/mm3 (150-450); RBC Distribution Width CV 13.4 % (11.6-14.6); RBC Distribution Width SD 48.5 fl (35.1-43.9); Red Blood Count 4.14 M/mm3 (4.6-6.2); White Blood Count 4.7 K/mm3 (4.4-11.0)
[2020-12-04 12:36] LABS: ALB/GLOB Ratio 0.8 RATIO (0.9-2.4); AST(SGOT) 50 U/L (15-37); Alanine Aminotransfer ALT/SGPT 20 U/L (16-61); Albumin, Serum 3.1 g/dL (3.2-5.0); Alkaline Phosphatase 121 U/L (45-117); Anion Gap 6 (5-15); BUN 5 mg/dL (7-18); BUN/Creat Ratio 7.3 RATIO (10-20); Calcium,Total 8.7 mg/dL (8.5-10.1); Chloride 102 mmol/L (98-107); Creatinine, Serum 0.68 mg/dL (0.70-1.30); EST Glomerular Filtration Rate 128 mL/min (>60); Est Glom Filt Rate - Afr Amer 155 mL/min (>60); Globulin 3.9 g/dL (2.2-4.2); Glucose 97 mg/dL (74-106); Magnesium 1.7 mg/dL (1.6-2.6); Potassium 4.4 mmol/L (3.5-5.1); Sodium Level 138 mmol/L (136-145)
== END ==
PROVIDERS: PCP Internal Medicine; Referring Provider Internal Medicine; Visit Provider Internal Medicine
DX: F10.20 Alcohol dependence, uncomplicated (principal); I10 Essential (primary) hypertension
CPT/HCPCS: 36415; 80053; 83735; 84100; 85025

== ENCOUNTER → 2021-11-26 | Outpatient (CLI) | payer OTHER, SELFPAY ==
[2021-11-26 12:45] LABS: ALB/GLOB Ratio 0.9 RATIO (0.9-2.4); AST(SGOT) 32 U/L (15-37); Alanine Aminotransfer ALT/SGPT 11 U/L (16-61); Albumin, Serum 3.5 g/dL (3.2-5.0); Alkaline Phosphatase 96 U/L (45-117); Anion Gap 9 (5-15); BUN 8 mg/dL (7-18); BUN/Creat Ratio 10.3 RATIO (10-20); Calcium,Total 8.7 mg/dL (8.5-10.1); Chloride 99 mmol/L (98-107); Cholesterol 149 mg/dL (200); Creatinine, Serum 0.77 mg/dL (0.70-1.30); EST Glomerular Filtration Rate 111 mL/min (>60); Est Glom Filt Rate - Afr Amer 134 mL/min (>60); Globulin 3.7 g/dL (2.2-4.2); Glucose 106 mg/dL (74-106); High Density Lipoprotein 40 mg/dL; PSA,Total - Annual Screen 0.32 ng/mL (0.00-4.00); Potassium 2.8 mmol/L (3.5-5.1); Protein, Total 7.2 g/dL (6.4-8.2); Sodium Level 141 mmol/L (136-145); Triglycerides 308 mg/dL; Very Low Density Lipoprotein 62 mg/dL (5-40)
[2021-11-26 12:49] LABS: Absolute Neutrophil Count 4.1 X10^3/uL (2.0-7.7); Basophil# 0.04 X10^3/uL; Basophil% 0.6 % (0-1); Hematocrit 32.1 % (40-54); Hemoglobin 10.2 g/dL (13.0-16.5); Lymphocyte % 18.1 % (19-41); Mean Corp Hgb Conc 31.8 g/dL (32-36); Mean Corpuscular Volume 97.6 fL (80-94); Mean Platelet Vol. 10.2 fl (6.2-12.0); Monocyte# 0.88 X10^3/uL; Monocyte% 13.3 % (0-10); NRBC Flagged by Analyzer 0 % (0-5); Neutrophil # 4.08 X10^3/uL (2.7-7.7); Neutrophil % 61.5 % (47-70); POSITIVE MORPHOLOGY YES; Platelet Count 440 K/mm3 (150-450); RBC Distribution Width CV 25.7 % (11.6-14.6); RBC Distribution Width SD 88.9 fl (35.1-43.9); Red Blood Count 3.29 M/mm3 (4.6-6.2); White Blood Count 6.6 K/mm3 (4.4-11.0)
[2021-11-26 12:54] LABS: Differential Indicated SCAN CRITERIA MET
[2021-11-26 14:43] LABS: Anisocytosis 1+
== END | disposition home or self-care (01) ==
LOC: BIMLAB 09:10
PROVIDERS: PCP Internal Medicine; Referring Provider Nurse Practitioner Family; Visit Provider Nurse Practitioner Family
DX: Z00.00 Encounter for general adult medical examination without abnormal findings (principal)
CPT/HCPCS: 36415; 80053; 80061; 84153; 84443; 85025; G0103

== ENCOUNTER → 2023-02-03 | Outpatient (CLI) | payer OTHER, SELFPAY ==
[2023-02-03 17:51] LABS: Hematocrit 40.1 % (40-54); Mean Corp Hgb Conc 34.9 g/dL (32-36); Mean Corpuscular Hgb 34.1 pg (27.0-32.0); Mean Corpuscular Volume 97.6 fL (80-94); Mean Platelet Vol. 9.7 fl (6.2-12.0); Platelet Count 314 K/mm3 (150-450); RBC Distribution Width CV 16.1 % (11.6-14.6); RBC Distribution Width SD 56.8 fl (35.1-43.9); Red Blood Count 4.11 M/mm3 (4.6-6.2); White Blood Count 6.6 K/mm3 (4.4-11.0)
[2023-02-03 18:11] LABS: Iron 142 ug/dL (65-175); Iron Binding Capacity,Total 288 ug/dL (250-450); PERCENT IRON SATURATION 49.3 % (15.0-55.0)
== END | disposition home or self-care (01) ==
PROVIDERS: PCP Internal Medicine; Referring Provider Internal Medicine Gastroenterology; Visit Provider Internal Medicine Gastroenterology
DX: D50.9 Iron deficiency anemia, unspecified (principal)
CPT/HCPCS: 36415; 83540; 83550; 85027

== ENCOUNTER 2023-04-14 16:42 | Emergency (ER) | payer OTHER, MEDICAID, SELFPAY ==
[2023-04-14 16:43] VITALS: BP 124/88; PULSE 115; RESP 18; TEMP 35.5; O2SAT 99
[2023-04-14 17:51] VITALS: BP 142/90; PULSE 96; RESP 17; O2SAT 96
--- NOTE | 2023-04-14 18:10 | ED.VIS.GI ---
HPI HPI - GI History of Present Illness Chief Complaint: Nausea/Vomiting Informant: patient Nausea/Vomiting/Emesis GI Symptom: Positive for Nausea and Vomiting Onset: Days Diarrhea/Melena/Hematochezia GI Symptom: Positive for Diarrhea; Negative for Melena or Hematochezia Onset: Yesterday Associated Symptoms Associated Symptoms: Positive for Hematuria; Negative for Dysuria or Frequency Narrative Narrative: Patient presents with nausea, vomiting, and diarrhea that has been constant over the past few days. Patient states that he feels lightheaded and dizzy. Patient states this is worse with standing. Patient states he feels like a spinning sensation. Patient denies any headaches. Patient denies any tinnitus or hearing changes. Patient states that he has also had an episode of hematuria yesterday. Patient denies any flank pain. Patient denies any fevers or chills. Patient denies any rhinorrhea or sore throat. Patient denies any abdominal pain. 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) Toenail fungus Home Medications aspirin 81 mg tablet,delayed release 81 mg PO DAILY@0800 30 days #30 tabs 01/12/18 [Rx Last Taken Unknown] boron citrate 3 mg tablet mg PO 01/10/19 [History Last Taken Unknown] mecobalamin (vitamin B12) 1,000 mcg disintegrating tablet,sublingual 1,000 mcg sublingual DAILY #90 tabs 01/19/20 [Rx Last Taken Unknown] thiamine HCl (vitamin B1) 100 mg tablet 100 mg PO DAILYCM #30 tabs 02/19/20 [Rx Last Taken Unknown] pantoprazole 40 mg tablet,delayed release 40 mg PO DAILY #90 tabs 12/27/20 [Rx Last Taken Unknown] albuterol sulfate 90 mcg/actuation aerosol inhaler (ProAir HFA) 1 - 2 puff inhalation Q6H PRN shortness of breath or wheezing #8.5 grams 11/26/21 [Rx Last Taken Unknown] ascorbic acid (vitamin C) 1,000 mg capsule 1 g PO DAILY 11/26/21 [History Last Taken Unknown] atorvastatin 40 mg tablet 40 mg PO QHS #90 tabs 11/26/21 [Rx Last Taken Unknown] carvedilol 3.125 mg tablet 3.125 mg PO BID 3 months #180 tabs 11/26/21 [Rx Last Taken Unknown] clopidogrel 75 mg tablet (Plavix) 75 mg PO DAILY #90 tabs 11/26/21 [Rx Last Taken Unknown] potassium chloride 20 mEq tablet,extended release 20 meq PO DAILY #60 tabs 11/26/21 [Rx Last Taken Unknown] turmeric 400 mg capsule See Rx Instructions PO .COMPLEX 11/26/21 [History Last Taken Unknown] zinc 50 mg tablet 50 mg PO DAILY 11/26/21 [History Last Taken Unknown] meclizine 25 mg tablet 25 mg PO 4X/DAY PRN PRN Dizziness #20 tabs 04/14/23 [Rx Last Taken Unknown] Allergy/AdvReac Type Severity Reaction Status Date / Time Seasonal Allergies: Uncoded Allergy Itching Verified 04/14/23 16:43 Family History Father Heart disease Daughter Diabetes Surgical History H/O right coronary artery stent placement (01/10/18) History of endoscopy Social History Smoking Status: Current every day smoker tobacco type: cigarettes alcohol intake: current alcohol intake frequency: holidays/special occasions only substance use type: does not use what type of physical activity do you participate in: none ROS ROS ED Constitutional Constitutional ED: Denies chills or fever(s) Eyes Eyes: Denies blurry vision or change in vision ENT ENT ED: Denies rhinorrhea or sore throat Cardiovascular Cardiovascular: Denies chest pain or palpitations Respiratory/Chest Respiratory/Chest: Denies cough or dyspnea Gastrointestinal Gastrointestinal: Reports nausea and vomiting Genitourinary Genitourinary ED: Reports hematuria; Denies dysuria Musculoskeletal Musculoskeletal: Denies back pain or neck pain Integumentary Denies abscess or rash Neurologic Neurologic: Denies headache(s) or weakness Allergic/Immunologic Allergic/Immunologic ED: Denies mouth swelling or urticaria EXAM Physical Exam Const Vital Signs: 04/14/23 16:43 04/14/23 17:51 04/14/23 18:58 Temperature 96 F L Temperature Source Temporal Pulse Rate 115 H 96 Pulse Rate [Lying] 98 Pulse Rate [Sitting (for 1 minute prior to obtaining)] 98 Pulse Rate [Standing (for 1 minute prior to obtaining)] 124 H Respiratory Rate 18 17 Blood Pressure 124/88 H 142/90 H Blood Pressure [Lying] 124/80 H Blood Pressure [Sitting (for 1 minute prior to obtaining)] 135/93 H Blood Pressure [Standing (for 1 minute prior to obtaining)] 134/114 H Blood Pressure Mean 100 107 Blood Pressure Mean [Lying] 94 Blood Pressure Mean [Sitting (for 1 minute prior to obtaining)] 107 Blood Pressure Mean [Standing (for 1 minute prior to obtaining)] 120 Pulse Ox 99 96 Oxygen Delivery Method Room Air Room Air 04/14/23 19:00 04/14/23 21:00 Temperature Temperature Source Pulse Rate Pulse Rate [Lying] Pulse Rate [Sitting (for 1 minute prior to obtaining)] Pulse Rate [Standing (for 1 minute prior to obtaining)] Respiratory Rate Blood Pressure 140/85 H 131/86 H Blood Pressure [Lying] Blood Pressure [Sitting (for 1 minute prior to obtaining)] Blood Pressure [Standing (for 1 minute prior to obtaining)] Blood Pressure Mean 103 101 Blood Pressure Mean [Lying] Blood Pressure Mean [Sitting (for 1 minute prior to obtaining)] Blood Pressure Mean [Standing (for 1 minute prior to obtaining)] Pulse Ox Oxygen Delivery Method Positive well nourished and well developed General Appearance ED: well developed and NAD HEENT Reports moist mucous membranes Eyes PERRL and EOMs intact bilaterally Eyes Narrative: There there is mild nystagmus with lateral gaze bilaterally. Patient states that it did reproduce his dizziness. Neck supple and no JVD Resp normal respiratory effort and clear to auscultation bilaterally Cardio regular rate and regular rhythm GI non-tender and non-distended Palpation: soft Neuro CN's II-XII intact bilaterally, moves all extremities and no sensory deficits noted Sensorium / Orientation: alert Motor Exam: strength 5/5 throughout Psych mental status grossly normal and thought process normal MDM MDM MDM Narrative Medical decision making narrative: Differential diagnosis includes vertigo, labyrinthitis, dehydration, electrolyte abnormality, and viral illness. CBC will be obtained to assess for leukocytosis and anemia. Basic metabolic profile will be obtained to assess for electrolyte abnormality and renal function. Urinalysis will be obtained to assess for urinary tract infection. CT scan of the brain will be obtained to assess for stroke. Lab Data Attestation: I reviewed the patient's lab results. Lab results narrative: CBC was reviewed. There is a mild leukocytosis of 13.1. The remainder is essentially within normal limits. Basic metabolic profile was reviewed. Potassium is slightly low at 3.0. BUN was 32. Creatinine was normal at 1.08. Chloride was slightly low at 90. Urinalysis was reviewed. Leukocyte esterase was 25 with positive nitrates. There is 1+ bacteria. There is 0-5 white blood cells. Labs: Laboratory Results - last 24 hr 04/14/23 04/14/23 17:20 20:10 WBC 13.1 H RBC 4.61 Hgb 15.1 Hct 41.9 MCV 90.9 MCH 32.8 H MCHC 36.0 RDW Std Deviation 51.3 H RDW Coeff of Nicolas 16.5 H Plt Count 489 H MPV 11.9 Immature Gran % (Auto) 0.400 Neut % (Auto) 75.4 H Lymph % (Auto) 8.8 L Spencer % (Auto) 14.8 H Eos % (Auto) 0.2 Baso % (Auto) 0.4 Absolute Neuts (auto) 9.9 H Absolute Lymphs (auto) 1.15 Nucleated RBC % 0 Differential Comment SCANNED Diff Path Review May foll Sodium 132 L Potassium 3.0 L Chloride 90 L Carbon Dioxide 23.0 Anion Gap 19 H BUN 32 H Creatinine 1.08 Estim Creat Clear Calc 79.04 Est GFR (MDRD) Af Amer 91 Est GFR (MDRD) Non-Af 75 BUN/Creatinine Ratio 29.6 H Glucose 154 H Calcium 11.0 H Urine Color Tangela Urine Clarity Clear Urine pH 5.0 Ur Specific Caro 1.025 Urine Protein 30 H Urine Glucose (UA) Normal Urine Ketones 50 H Urine Occult Blood 10 H Urine Nitrite Positive H Urine Bilirubin 1 H Urine Urobilinogen 4 H Ur Leukocyte Esterase 25 H Urine RBC 0-5 SEEN Urine WBC 0-5 SEEN Ur Squamous Epith Cells 0 SEEN Urine Bacteria 1+ Urine Mucus 4+ Radiography Diagnostic Testing: Clinical Impression(s) from Imaging Studies Brain CT 04/14/23 18:37 IMPRESSION: Mild atrophy and periventricular white matter ischemic change. No acute bleed. If concern for acute infarct MRI. Electronically Signed: Abdi Hammonds MD at 19:23 EST , CT scan of the brain was obtained. There is no acute intracranial abnormality. There are chronic changes noted. This was interpreted by the radiologist and was also independently reviewed by myself. Treatment and Re-Evaluation :: Patient was given IV fluids and Zofran. Patient was also given a dose of Valium. Patient was still feeling somewhat dizzy on reevaluation. Patient was given a dose of meclizine. Patient was also given a dose of potassium here. Patient was advised of his findings. Urine culture was ordered. Patient was advised that if anything grows out on the urine culture will call him and start antibiotics at that time. Patient was instructed to follow-up with his primary care physician in 5 to 7 days. Patient understood and was agreeable with plan. All questions were answered. Discharge Plan Triage Chief Complaint: Nausea/Vomiting Other Complaint: Palpitations ED Provider: Alon Murillo Dx/Rx/DC Orders Clinical Impression: Nicotine dependence, Dizziness, Essential (primary) hypertension Instructions: ED Dizziness, Uncertain Cause Prescriptions: New meclizine [meclizine] 25 mg tablet 25 mg PO 4X/DAY PRN PRN (Reason: Dizziness) Qty: 20 0RF No Action boron citrate 3 mg tablet 3 mg tablet PO turmeric 400 mg capsule See Rx Instructions PO .COMPLEX Rx Instructions: orally daily; ascorbic acid (vitamin C) 1,000 mg capsule 1 g PO DAILY zinc 50 mg tablet 50 mg PO DAILY carvedilol 3.125 mg tablet 3.125 mg PO BID 90 Days Qty: 180 1RF albuterol sulfate [ProAir HFA] 90 mcg/actuation HFA aerosol inhaler 1 - 2 puff inhalation Q6H PRN (Reason: shortness of breath or wheezing) Qty: 8.5 1RF clopidogrel [Plavix] 75 mg tablet 75 mg PO DAILY Qty: 90 2RF atorvastatin 40 mg tablet 40 mg PO QHS Qty: 90 2RF aspirin 81 MG tablet 81 mg PO DAILY@0800 30 Days Qty: 30 0RF thiamine HCl (vitamin B1) 100 MG tablet 100 mg PO DAILYCM Qty: 30 0RF mecobalamin (vitamin B12) 1,000 mcg tablet,disintegrating 1,000 mcg SUBLINGUAL DAILY Qty: 90 3RF Rx Instructions: place tablet under tongue and allow to dissolve for at least30 secs before swallowing pantoprazole 40 mg tablet,delayed release (DR/EC) 40 mg PO DAILY Qty: 90 3RF potassium chloride 20 mEq tablet extended release 20 meq PO DAILY Qty: 60 1RF Primary Care Provider: Care Physician,No Primary Referrals: Peter Chaudhari MD [Med Staff - Active Staff] - 3-5 Days Disposition Disposition: Home, Self Care
--- NOTE | 2023-04-14 18:37 | CT_ITS ---
STUDY: CT BRAIN WITHOUT CONTRAST REASON FOR EXAM: Male, 57 years old. Dizziness RADIATION DOSAGE (If Supplied By Facility): CTDIvol = ( 44.99 ) mGy, DLP = ( 846.73 ) mGycm TECHNIQUE: Transaxial CT imaging of the brain was performed without administration of intravenous contrast material. Individualized dose optimization techniques were used for this CT. COMPARISON: No relevant priors. FINDINGS: Normal soft tissue structures. Normal calvarium. Calcific plaquing of the cavernous carotids Mild atrophy and periventricular white matter ischemic changes. Normal basal ganglia and thalami. Normal brainstem. Normal cerebellum. There is no intracranial hemorrhage. There are no findings of an acute ischemic infarction. Normal visualized paranasal sinuses. CT/Brain/Head without Contrast IMPRESSION: Mild atrophy and periventricular white matter ischemic change. No acute bleed. If concern for acute infarct MRI. Electronically Signed: Abdi Hammonds MD at 19:23 EST ,
[2023-04-14] MEDS: Ondansetron 4 MG/2 ML Vial IV (18:46)
[2023-04-14] MEDS: 0.9% Normal Saline (1000mL) 1,000 ML 1000 ML IV (18:46)
[2023-04-14] MEDS: diazePAM 5 MG Tablet 2.5 MG PO (18:46)
[2023-04-14 18:47] VITALS: BMI 21.2; BMI 21.3
[2023-04-14 18:50] LABS: Absolute Lymphocyte Count 1.15 X10^3/uL (0.83-4.51); Absolute Neutrophil Count 9.9 X10^3/uL (2.0-7.7); Basophil# 0.05 X10^3/uL; Basophil% 0.4 % (0-1); Eosinophil# 0.03 X10^3/uL; Eosinophils% 0.2 % (0-5); Hematocrit 41.9 % (40-54); Hemoglobin 15.1 g/dL (13.0-16.5); Lymphocyte # 1.15 X10^3/ul (0.83-4.51); Lymphocyte % 8.8 % (19-41); Mean Corpuscular Hgb 32.8 pg (27.0-32.0); Mean Corpuscular Volume 90.9 fL (80-94); Mean Platelet Vol. 11.9 fl (6.2-12.0); Monocyte# 1.93 X10^3/uL; Monocyte% 14.8 % (0-10); NRBC Flagged by Analyzer 0 % (0-5); Neutrophil # 9.87 X10^3/uL (2.7-7.7); Neutrophil % 75.4 % (47-70); POSITIVE DIFFERENTIAL YES; Platelet Count 489 K/mm3 (150-450); RBC Distribution Width CV 16.5 % (11.6-14.6); RBC Distribution Width SD 51.3 fl (35.1-43.9); Red Blood Count 4.61 M/mm3 (4.6-6.2); White Blood Count 13.1 K/mm3 (4.4-11.0)
[2023-04-14 18:52] LABS: Differential Indicated SCAN CRITERIA MET
[2023-04-14 18:58] VITALS: BP 124/80; BP 134/114; BP 135/93; PULSE 124; PULSE 98
[2023-04-14 19:00] VITALS: BP 140/85
[2023-04-14 19:02] LABS: Anion Gap 19 (5-15); BUN 32 mg/dL (7-18); BUN/Creat Ratio 29.6 RATIO (10-20); Chloride 90 mmol/L (98-107); Creatinine, Serum 1.08 mg/dL (0.70-1.30); EST Glomerular Filtration Rate 75 mL/min (>60); Est Glom Filt Rate - Afr Amer 91 mL/min (>60); Estimated Creatinine Clearance 79.04 ml/min; Glucose 154 mg/dL (74-106); Sodium Level 132 mmol/L (136-145)
[2023-04-14 19:19] LABS: Differential Comment SCANNED
[2023-04-14 20:17] LABS: Squamous Epithelial Cells - UA 0 SEEN /hpf (0-5)
[2023-04-14 20:19] LABS: Color, Urine Amber (Yellow); Glucose, Dipstick Normal (Normal); Ketone-Dipstick 50 mg/dl (Negative); Leukocyte Esterase-Dipstick 25 /ul (Negative); Nitrite-Dipstick Positive (Negative); Occult Blood-Urine 10 /ul (Negative); Protein-Dipstick 30 mg/dl (Negative); Specific Gravity, Urine 1.025 (1.002-1.030); Urine Clarity Clear (Clear); Urine Urobilinogen 4 mg/dl (Normal)
[2023-04-14 20:25] LABS: Urine Bilirubin Dipstick 1 mg/dL (Negative)
[2023-04-14 20:27] LABS: Bacteria 1+ /hpf (None Seen); Mucous, Urine 4+ /hpf (<or=2+); Red Blood Cells-Urine 0-5 SEEN /hpf (0-5); White Blood Cells 0-5 SEEN /hpf (0-5)
[2023-04-14 21:00] VITALS: BP 131/86
[2023-04-14] MEDS: Potassium Chloride Oral Tablet 20 MEQ 40 MEQ PO (21:40)
[2023-04-14] MEDS: Meclizine HCl 25 MG Tablet PO (21:41)
[2023-04-19 09:41] LABS: Pathologist Review Reviewed
== END 2023-04-14 21:59 | disposition home or self-care (01) ==
PROVIDERS: Emergency Provider Emergency Medicine; Visit Provider Emergency Medicine
DX: R42 Dizziness and giddiness (principal); I10 Essential (primary) hypertension; I25.10 Atherosclerotic heart disease of native coronary artery without angina pectoris; I25.2 Old myocardial infarction; F17.210 Nicotine dependence, cigarettes, uncomplicated; R00.2 Palpitations; Z95.5 Presence of coronary angioplasty implant and graft
CPT/HCPCS: 70450; 80048; 81001; 85025; 87077; 87086; 87088; 96361; 96374; 99285; J7030; A4216; J2405